=== PATIENT | female | born 1980 | race Caucasian/White ===

== ENCOUNTER 2019-12-12 14:06 | Emergency (ER) | payer OTHER, SELFPAY ==
--- NOTE | ~2019-12-12 | US_ITS ---
EXAMINATION: US pelvic complete w TV DATE: 12/12/2019 16:02 INDICATION: Left pelvic pain Comparison:No prior studies for comparison. TECHNIQUE: Multiple transabdominal and endovaginal sonographic images of the pelvis performed. FINDINGS: The uterus is surgically absent. The right ovary measures 3.3 x 1.6 x 1.3 cm and the left o vary measures 2.5 x 1.5 x 1.6 cm. There are small follicles in each ovary. There is no free fluid in the pelvis. There are no abnormal masses seen on either side. IMPRESSION: 1. Unremarkable pelvic ultrasound post hysterectomy. Reviewed, dictated and finalized at location B.
--- NOTE | ~2019-12-12 | CT_ITS ---
EXAMINATION: CT abdomen pelvis wo con DATE: 12/12/2019 16:36 INDICATION: Left pelvic pain. TECHNIQUE: Computed tomography (CT) of the abdomen and pelvis was performed without intravenous contr ast. Automated exposure control and iterative reconstruction technique were employed. The dose-length product was 622.99 mGy-cm. COMPARISON: CT abdomen and pelvis 12/06/2015 FINDINGS: The visualized portions of the lung bases are clear without pneumonia or pleural effusion. The heart size is normal. No pericardial effusion. There is diffuse hepatic steatosis. There are gall stones in the gallbladder, which is normal in size. The spleen, pancreas, adrenal glands, and right k idney are normal. There is a 1 mm stone in left kidney. There are no dilated loops of bowel. The appe ndix is normal. There are no pathologically enlarged lymph nodes. There is no free intraperitoneal fl uid. The ovaries are normal. There are changes of hysterectomy. There is a supraumbilical ventral her joann containing fat. The bones are unremarkable. There is a 3.2 cm subcutaneous cystic mass in left bu ttock, likely a sebaceous cyst. IMPRESSION: 1. 1 mm nonobstructing left kidney stone. 2. Cholelithiasis. 3. Diffuse hepatic steatosis. 4. Supraumbilical ventral hernia containing fat. Reviewed, dictated and finalized at location A.
[2019-12-12 14:21] VITALS: BP 147/87; PULSE 95; RESP 18; TEMP 36.8; O2SAT 99
--- NOTE | 2019-12-12 15:21 | ED.GENADULT ---
HPI - General Adult General Chief complaint: Abdominal Pain Stated complaint: left ovarian pain Time Seen by Provider: 12/12/19 14:21 Source: patient Mode of arrival: ambulatory Limitations: no limitations History of Present Illness HPI narrative: Patient is a 39-year-old female who presents to emergency department for evaluation of left ovarian pain noting sharp stabbing intermittent pain to the left adnexa region with history of polycystic ovaries and similar occurrence in the past. Patient notes nausea and pain but denies fever chills vomiting vaginal bleeding discharge or urinary symptoms. Patient presents per private vehicle. Patient has follow-up with gynecology tomorrow. Patient does not wish for any IV medications at this time Related Data Home Medications Medication Instructions Recorded Confirmed amoxicillin 500 mg PO DAILY 06/08/19 06/08/19 ergocalciferol (vitamin D2) 1,250 mcg PO DAILY 06/08/19 06/08/19 [Vitamin D2] ertugliflozin [Steglatro] 5 mg PO DAILY 06/08/19 06/08/19 glipizide 2.5 mg PO DAILY 06/08/19 06/08/19 glipizide 5 mg PO DAILY 06/08/19 06/08/19 Allergies Allergy/AdvReac Type Severity Reaction Status Date / Time No Known Allergies Allergy Verified 10/25/18 17:55 Review of Systems Review of Systems: All systems reviewed & are unremarkable except as noted in HPI and below PMFSH Past Medical History Medical History Polycystic ovarian syndrome Surgical History Surgical History H/O: hysterectomy Family History Family History (Updated 12/25/15 @ 23:19 by DOCTOR UNKNOWN) Mother Family history of mental disorder Family history of diabetes mellitus in first degree relative Social History Social History (Updated 12/12/19 @ 15:24 by Russell Gerard PA-C) Smoking status: Current every day smoker Alcohol intake: never Gender identity (if verbalized by the patient): Female Exam Narrative: Exam Narrative: GENERAL: Well-appearing, obese, and in no acute distress. HEAD: Normocephalic, atraumatic. EYES: PERRLA and EOMI. ENT: Nares clear, no rhinorrhea or epistaxis. Mucous membranes moist. Oropharynx without tonsillar hypertrophy exudate or other lesions. NECK: Supple. No adenopathy or masses. CHEST: Clear to auscultation. No respiratory distress. No wheezes rales or rhonchi HEART: Regular rate and rhythm. No murmur heard. Normal peripheral pulses. ABDOMEN: Soft, nontender, nondistended EXTREMITIES: Normal range of motion. No edema. SKIN: Warm, dry, no rash. NEURO: No focal deficits. Alert and oriented x3. PSYCH: Normal mood and affect. Course Course Emergency Course: Patient in the room in no distress aware of case findings treatment plan and diagnosis refused any medications in the emergency department will be reevaluated by her grocery clerk tomorrow and is felt appropriate for outpatient reevaluation Vital Signs Vital signs: Vital Signs Temperature 98.2 F 12/12/19 14:21 Pulse Rate 95 12/12/19 14:21 Respiratory Rate 18 12/12/19 14:21 Blood Pressure 147/87 H 12/12/19 14:21 Pulse Oximetry 99 12/12/19 14:21 Temperature 98.2 F 12/12/19 14:21 Pulse Rate 89 12/12/19 16:19 Respiratory Rate 18 12/12/19 16:19 Blood Pressure 148/98 H 12/12/19 16:19 Pulse Oximetry 100 12/12/19 16:19 Medical Decision Making MDM Narrative Medical decision making narrative: Patient in the room at this time resting comfortably in no distress aware of case findings treatment plan and diagnosis felt appropriate for reevaluation by her grocery clerk tomorrow provided with reasons to return had ultrasound and CAT scan imaging with no high risk changes unsure as to the etiology of her subtle leukocytosis which could be related to her pain patient afebrile nontoxic-appearing no distress and felt appropriate for outpatient reevaluation by gynecology
[2019-12-12 15:39] LABS: Basophils Absolute Auto 0.1 K/mm3 (0.0-0.1); Basophils Percent Auto 0.9 % (0.2-1.2); Eosinophils Absolute Auto 0.3 K/mm3 (0-0.3); Eosinophils Percent Auto 2.2 % (0-4.4); Hematocrit 50.3 % (37.0-47.0); Hemoglobin 16.8 g/dL (12.0-15.0); Immature Granulocyte Absolute 0.05 K/mm3 (0.00-0.031); Immature Granulocyte Percent A 0.4 % (0-0.5); Lymphocytes Absolute Auto 3.77 K/mm3 (0.9-3.2); Lymphocytes Percent Auto 29.7 % (18.3-44.2); Mean Corpuscular HGB Conc 33.4 g/dl (32-36); Mean Corpuscular Hemoglobin 29.5 pg (26-34); Mean Corpuscular Volume 88.4 fl (80-100); Mean Platelet Volume 10.4 fl (7.4-10.4); Monocytes Absolute Auto 0.7 K/mm3 (0.1-0.6); Monocytes Percent Auto 5.3 % (2.6-8.5); Neutrophils Absolute Auto 7.8 K/mm3 (1.3-6.7); Neutrophils Percent Auto 61.5 % (45.5-73.1); Platelet Count Result 301 k/mm3 (150-375); Red Blood Count 5.69 M/mm3 (4.2-5.4); Red Cell Distribution Width 13.7 % (11.5-14.5); White Blood Count 12.7 K/mm3 (4.5-10.0)
[2019-12-12 15:44] LABS: Add Urine Microscopic? YES; Appearance Urine Clear (Clear); Bacteria Urine Trace /hpf; Bilirubin Urine Negative (Negative); Blood Urine Negative (Negative); Color Urine Straw (Yellow); Glucose Urine UA 3+ mg/dL (Negative); Ketones Urine Negative (Negative); Leukocyte Esterase Ur Negative LEU/UL (Negative); Nitrate Urine Negative (Negative); Protein Urine Negative (Negative); RBC Urine 0-2 /hpf (0-2); Specific Grav Ur 1.022 (1.001-1.035); Squamous Epithelial Cell Urine Moderate /hpf (Few); Urobilinogen Urine Negative mg/dL (<2.0); WBC Urine 0-3 /hpf
[2019-12-12 15:51] LABS: Alanine Aminotransferase 19 U/L (4-35); Albumin Level 4.6 g/dL (3.5-5.1); Alkaline Phosphatase 89 U/L (38-126); Aspartate Amino Transferase 19 U/L (14-36); Bilirubin,Total 0.5 mg/dL (0.2-1.3); Blood Urea Nitrogen 14 mg/dL (7-17); Calcium 9.2 mg/dL (8.4-10.2); Carbon Dioxide 24 mmol/L (22-30); Chloride 104 mmol/L (98-107); Estimated CRCL calculation 119 ml/min; Estimated Glomerular Filt Rate > 60; Glucose 206 mg/dL (65-105); Lipase 111 U/L (23-300); Potassium 3.7 mmol/L (3.4-5.0); Sodium 136 mmol/L (137-145)
[2019-12-12 16:19] VITALS: BP 148/98; PULSE 89; RESP 18; O2SAT 100
== END 2019-12-12 17:51 | disposition home or self-care (01) ==
PROVIDERS: Emergency Medicine Emergency Medical Services; Emergency Provider Emergency Medicine; PCP Nurse Practitioner Family
DX: R10.9 Unspecified abdominal pain (principal); E28.2 Polycystic ovarian syndrome; F17.200 Nicotine dependence, unspecified, uncomplicated; N20.0 Calculus of kidney; K80.20 Calculus of gallbladder without cholecystitis without obstruction; K76.0 Fatty (change of) liver, not elsewhere classified; K43.9 Ventral hernia without obstruction or gangrene
CPT/HCPCS: 36415; 74176; 76830; 76856; 80053; 81001; 83690; 85025; 99284

== ENCOUNTER 2021-11-26 11:50 | Emergency (ER) | payer OTHER, SELFPAY ==
[2021-11-26 11:56] VITALS: BP 133/81; PULSE 81; RESP 20; TEMP 36.6; O2SAT 99
--- NOTE | 2021-11-26 11:58 | ED.NAVMDI ---
HPI - Nausea/Vomiting/Diarrhea General Stated complaint: Abdo pain diarrhea Time Seen by Provider: 11/26/21 11:59 Source: patient and RN notes reviewed History of Present Illness HPI Narrative: Patient is a 41-year-old female presents the urgent care with complaints of loose stools and abdominal pain. Patient states she is having a lot of abdominal cramping and feels that her body needs to expel something . Patient states that last she cooked a meal and there was raw chicken juice on her food . Patient states she proceeded to eat the mashed potatoes that were covered in the raw chicken juice and has been ill ever since then. Patient states she spoke to her doctor on Monday in which they told her not to stop the diarrhea and call if symptoms are still present on Monday. Patient states she called today and they wanted to do outpatient blood work in which the patient did not feel like that was enough . Patient states that she has not had any vomiting but reports consistent nausea. States that her last treatment for her symptoms was Monday in which she took 1 dose of Imodium. Patient denies any fevers. No other acute complaints. No acute distress noted. Patient aware of the plan of care. Some parts of this dictation were generated by voice recognition software and may contain typographical and/or grammatical inaccuracies. Related Data Home Medications Medication Instructions Recorded Confirmed ergocalciferol (vitamin D2) 1,250 1,250 mcg PO DAILY 06/08/19 04/05/21 mcg (50,000 unit) capsule (Vitamin D2) ertugliflozin 5 mg tablet 5 mg PO DAILY 06/08/19 04/05/21 (Steglatro) glipizide 2.5 mg tablet, extended 2.5 mg PO DAILY 06/08/19 04/05/21 release 24 hr glipizide 5 mg tablet 5 mg PO DAILY 06/08/19 04/05/21 Allergies Allergy/AdvReac Type Severity Reaction Status Date / Time No Known Allergies Allergy Verified 11/26/21 12:11 Review of Systems Review of Systems: CONSTITUTIONAL: Denies fever, chills, or sweats. Reports of fatigue EYES: Denies visual changes, redness, or discharge. ENT: Denies rhinorrhea, congestion, sore throat, or otalgia. CARDIOVASCULAR: Denies chest pain, palpitations, or edema. RESPIRATORY: Denies cough or dyspnea. GASTROINTESTINAL: Reports of nausea and diarrhea without vomiting. Reports of intermittent abdominal cramping GENITOURINARY: Denies dysuria or hematuria. SKIN: Denies rash or itching. MUSCULOSKELETAL: Denies back pain, joint pain, or myalgia. NEUROLOGIC: Denies headache, numbness, or weakness. All other systems reviewed are negative, except as documented in HPI. [facility] Past Medical History Medical History Diabetes Kidney stones Polycystic ovarian syndrome Surgical History Surgical History H/O: hysterectomy History of placement of ear tubes History of tubal ligation Family History Family History Mother Family history of mental disorder Family history of diabetes mellitus in first degree relative Heart disease Grandparent Cerebrovascular accident Diabetes mellitus Heart disease Social History Social History Years smoked: 25 Smoking status: Current every day smoker Alcohol intake: never Additional occupation/education comments: [employer] Gender identity (if verbalized by the patient): Female Comments At the time of my signature, I reviewed and agree with the nursing past medical, surgical, social, and family history. There is no relevant family history pertinent to the patient complaint. Exam Narrative: GENERAL: This is a well-nourished, well-developed patient. Appears anxious HEAD: normocephalic, atraumatic. EYES: PERRL. Sclera clear/white. Vision is grossly intact. EARS: External ears normal NOSE: External
== END 2021-11-26 12:20 | disposition short-term general hospital (02) ==
PROVIDERS: Emergency Provider Nurse Practitioner Family; PCP Nurse Practitioner Family
DX: R10.12 Left upper quadrant pain (principal); R19.7 Diarrhea, unspecified; F17.200 Nicotine dependence, unspecified, uncomplicated; E11.9 Type 2 diabetes mellitus without complications; E28.2 Polycystic ovarian syndrome
CPT/HCPCS: 99212; G0463

== ENCOUNTER 2021-11-26 12:52 | Emergency (ER) | payer OTHER, SELFPAY ==
[2021-11-26 12:57] VITALS: BP 128/98; PULSE 85; RESP 18; TEMP 36.1; O2SAT 99
--- NOTE | 2021-11-26 14:27 | ED.ABDPAIN ---
HPI - Abdominal Pain General Chief Complaint: Abdominal Pain Stated Complaint: abdominal pain Time Seen by Provider: 11/26/21 14:27 Source: patient Mode of arrival: ambulatory Limitations: no limitations History of Present Illness HPI narrative: Patient presents with intermittent feeling blah, shaky, sweating, and diarrheafor the last 3 days history of IBS, a lot of stress lately, patient reports coming in contact with chicken juice 3 days ago which probably have Salmonella. Patient denies any fever, chills, abdominal pain, or bloody diarrhea Related Data Home Medications Medication Instructions Recorded Confirmed ergocalciferol (vitamin D2) 1,250 1,250 mcg PO DAILY 06/08/19 04/05/21 mcg (50,000 unit) capsule (Vitamin D2) ertugliflozin 5 mg tablet 5 mg PO DAILY 06/08/19 04/05/21 (Steglatro) glipizide 2.5 mg tablet, extended 2.5 mg PO DAILY 06/08/19 04/05/21 release 24 hr glipizide 5 mg tablet 5 mg PO DAILY 06/08/19 04/05/21 Allergies Allergy/AdvReac Type Severity Reaction Status Date / Time No Known Allergies Allergy Verified 11/26/21 12:11 Review of Systems Review of Systems: All systems reviewed & are unremarkable except as noted in HPI and below PMFSH Past Medical History Medical History Diabetes Kidney stones Polycystic ovarian syndrome Surgical History Surgical History H/O: hysterectomy History of placement of ear tubes History of tubal ligation Family History Family History Mother Family history of mental disorder Family history of diabetes mellitus in first degree relative Heart disease Grandparent Cerebrovascular accident Diabetes mellitus Heart disease Social History Social History Years smoked: 25 Smoking status: Current every day smoker Alcohol intake: never 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 Musculoskeletal: Normal range of motion, nontender back Neurologic: Alert and oriented ?3, [employer] is normal as tested, no gross motor deficit Course Course Emergency Course: Patient presents with not feeling well with diarrhea, possible chicken juice exposure,/Salmonella infection, no family member have similar symptoms, history of IBS, a lot of stress lately, work-up today showed hypokalemia, could be secondary to the diarrhea. My concern is IBS flare, viral diarrhea, less likely Salmonella infection. Even if the patient have Salmonella infection, supportive measures is recommended, there is no evidence of benefit from antibiotic in diarrhea in otherwise healthy people.. Patient denies any fever, chills, abdominal pain, nausea or vomiting. Vital Signs Vital signs: Vital Signs Temperature 36.1 C L 11/26/21 12:57 Pulse Rate 85 11/26/21 12:57 Respiratory Rate 18 11/26/21 12:57 Blood Pressure 128/98 H 11/26/21 12:57 Pulse Oximetry 99 11/26/21 12:57 Oxygen Delivery Room Air 11/26/21 12:57 Temperature 36.1 C L 11/26/21 12
[2021-11-26 14:57] LABS: Basophils Percent Auto 0.5 % (0.2-1.2); Eosinophils Absolute Auto 0.2 K/mm3 (0-0.3); Eosinophils Percent Auto 1.9 % (0-4.4); Hematocrit 50.5 % (37.0-47.0); Hemoglobin 16.7 g/dL (12.0-15.0); Immature Granulocyte Absolute 0.03 K/mm3 (0.00-0.031); Immature Granulocyte Percent A 0.4 % (0-0.5); Lymphocytes Absolute Auto 3.77 K/mm3 (0.9-3.2); Lymphocytes Percent Auto 45.3 % (18.3-44.2); Mean Corpuscular HGB Conc 33.1 g/dl (32-36); Mean Corpuscular Hemoglobin 29.5 pg (26-34); Mean Corpuscular Volume 89.2 fl (80-100); Mean Platelet Volume 10.8 fl (7.4-10.4); Monocytes Absolute Auto 0.4 K/mm3 (0.1-0.6); Monocytes Percent Auto 5.2 % (2.6-8.5); Neutrophils Absolute Auto 3.9 K/mm3 (1.3-6.7); Neutrophils Percent Auto 46.7 % (45.5-73.1); Platelet Count Result 166 k/mm3 (150-375); Red Blood Count 5.66 M/mm3 (4.2-5.4); Red Cell Distribution Width 13.4 % (11.5-14.5); White Blood Count 8.3 K/mm3 (4.5-10.0)
[2021-11-26] MEDS: SODIUM CHLORIDE 0.9% IV 2,000 ML 999 ML IV CONT (14:59)
[2021-11-26 15:41] LABS: Alanine Aminotransferase 34 U/L (6-35); Albumin Level 3.7 g/dL (3.5-5.1); Alkaline Phosphatase 63 U/L (38-126); Anion Gap 5 mmol/L (8-16); Aspartate Amino Transferase 25 U/L (14-36); Bilirubin,Total 0.4 mg/dL (0.2-1.3); Blood Urea Nitrogen 9 mg/dL (7-17); Calcium 7.5 mg/dL (8.4-10.2); Carbon Dioxide 23 mmol/L (22-30); Chloride 112 mmol/L (98-107); Estimated CRCL calculation 130 ml/min; Estimated Glomerular Filt Rate > 60; Glucose 153 mg/dL (65-110); Lipase 38 U/L (23-300); Potassium 3.3 mmol/L (3.4-5.0); Sodium 140 mmol/L (137-145)
[2021-11-26] MEDS: METOCLOPRAMIDE HCL INJ 10 MG/2 ML VIAL IV PUSH (15:47)
[2021-11-26] MEDS: diphenhydrAMINE HCl INJ 50 MG/ML VIAL 25 MG IV PUSH (15:48)
[2021-11-26 16:53] LABS: Appearance Urine Clear (Clear); Bilirubin Urine Negative (Negative); Blood Urine Negative (Negative); Color Urine Yellow (Yellow); Glucose Urine UA 3+ mg/dL (Negative); Ketones Urine 1+ mg/dL (Negative); Leukocyte Esterase Ur Negative LEU/UL (Negative); Nitrate Urine Negative (Negative); Protein Urine Negative (Negative); Specific Grav Ur 1.015 (1.001-1.035); Urobilinogen Urine 0.2 mg/dL (<2.0)
[2021-11-26 17:05] LABS: Bacteria Urine Trace /hpf; Mucus Urine Rare /lpf; Squamous Epithelial Cell Urine Rare /hpf (Few)
[2021-11-26 17:13] VITALS: BP 107/87; PULSE 68; RESP 18; O2SAT 97
[2021-11-26 17:15] LABS: Add Urine Microscopic? YES
[2021-11-26] MEDS: POTASSIUM CHLORIDE 20 MEQ TABLET 40 MEQ PO (17:19)
[2021-11-26 17:24] VITALS: BP 115/67; PULSE 78; RESP 14; O2SAT 98
== END 2021-11-26 17:26 | disposition home or self-care (01) ==
PROVIDERS: Emergency Provider Emergency Medicine; PCP Nurse Practitioner Family
DX: R19.7 Diarrhea, unspecified (principal); E11.9 Type 2 diabetes mellitus without complications; F17.210 Nicotine dependence, cigarettes, uncomplicated
CPT/HCPCS: 36415; 80053; 81001; 83690; 85025; 96361; 96374; 96375; 99284; A9270; J1200; J2765; J7030

== ENCOUNTER 2022-08-01 13:25 | Outpatient (CLI) | payer OTHER, SELFPAY ==
[2022-08-01 14:59] LABS: Anion Gap 7 mmol/L (8-16); Blood Urea Nitrogen 18 mg/dL (7-17); Calcium 8.7 mg/dL (8.4-10.2); Carbon Dioxide 25 mmol/L (22-30); Chloride 106 mmol/L (98-107); Estimated Glomerular Filt Rate > 60; Glucose 106 mg/dL (65-110); Potassium 4.1 mmol/L (3.4-5.0); Sodium 138 mmol/L (137-145)
== END 2022-08-01 13:26 | disposition home or self-care (01) ==
LOC: ANHSURGERY 13:37
PROVIDERS: Anesthesiology; PCP Nurse Practitioner Family; Visit Provider Surgery
DX: E11.9 Type 2 diabetes mellitus without complications (principal); Z01.818 Encounter for other preprocedural examination
CPT/HCPCS: 36415; 80048

== ENCOUNTER 2022-08-09 01:41 | Day surgery (SDC) | payer OTHER, SELFPAY ==
--- NOTE | 2022-07-29 09:17 | PC.NURSE ---
Report to the Outpatient Waiting Room, entrance under the green pavilion located off [facility], at time 1030 on date 08/09/22. Planned Procedure Time: 1230 . Time changes happen often and if your time is changed the preop area will call you the afternoon before. - You and your visitor will be asked to self-screen and do not enter if you have any COVID symptoms. - Only one visitor is requested with a max of two and NO children visitors are allowed at this time. - The patient visitor may be requested to leave or wait in car when not with patient due to distancing restrictions. - A mask is optional within the hospital at this time. Patients may have clear liquids (water, carbonated beverages, clear teas, apple juice) until 3 hours prior to surgery with a maximum of 20 ounces. - No food from midnight until time of surgery - Infants may have breast milk until 4 hours before surgery, infant formula 6 hours prior to surgery. - Children will be allowed to drink immediately following surgery. If applicable, please bring a bottle or sippy cup to assist with drinking. Juice, water, soda, and popsicles are readily available. For infants on formula, please bring formula the day of surgery. Pacifiers are allowed. Take the following medications with a SIP of water the morning of surgery: ____NONE DO NOT STOP ANY OF YOUR OTHER PRESCRIPTION MEDICATIONS PRIOR TO SURGERY ?EXCEPT THE FOLLOWING Medications to discontinue per physician VITAMIN D Date to take last dose 3 DAYS PRIOR__ Please no make-up, nail frisian, hairspray, perfume, deodorant, or body powder the day of surgery. No jewelry (including any body piercings) or valuables the day of surgery, leave them at home. Please take a shower or bath the night before, or the morning of, surgery with an antibacterial soap. Wear comfortable, loose fitting clothing. Children are encouraged to wear pajamas. - Jewelry must be removed prior to entering the operating room. Rings and piercings that are not removed may be cut off. - The hospital will not accept responsibility for valuables. - Please leave all valuables, including medications, at home the day of surgery. If you are going home after surgery, a licensed chair car driver must drive you home. - NO public transportation without another adult if you receive anesthesia. - We recommend that an adult stay with you for 24 hours following discharge. - We also recommend that you do not drive, make important decision, drink alcoholic beverages, or take any drugs that were not prescribed by your health care provider for at least 24 hours after your discharge time. For Pediatric surgeries, we recommend two adults accompany the child home. Follow any additional instructions given to you from your surgeon. If you or anyone in your household have experienced Covid symptoms in the past week, please notify your surgeon or the nurse liaison at the phone number below for possible testing. Telephone instructions given to _PATIENT and asked if any additional questions and then verbalized understanding. Patient advised to call surgeon office or pre surgery nurse liaison [phone] if any additional questions.
[2022-08-09 12:45] VITALS: BP 120/79; PULSE 100; RESP 16; TEMP 36.4; O2SAT 97
[2022-08-09] MEDS: LACTATED RINGERS 1,000 ML 30 ML IV CONT (12:45)
[2022-08-09 12:57] LABS: Glucose Point of Care 172 mg/dl (65-105)
--- NOTE | 2022-08-09 13:27 | WPDHPUPDATE1 ---
History and Physical Update Update Date/Time: 08/09/22 13:27 History and Physical has been reviewed, including an updated exam of the patient. There are NO changes in the patient's condition. Risks, benefits, and alternatives have been discussed and questions answered. Patient agrees to proceed with procedure.
--- NOTE | 2022-08-09 13:34 | WPDANESEPPF ---
Anes - Initial Pre Proc Eval Procedure: Operation Date: 08/09/22 15:00 Proposed Procedures p Excision of Left Buttock Mass - Derrick Julio DO Date/Time: 08/09/22 13:34 Surgeon: Derrick Julio DO Pre Op Diagnosis: left buttock nodule(4.5cm) Patient Data Age: 41 Gender: F Height: 1.65 m Weight: 82.5 kg Last Vital Signs Temp 36.4 C 08/09/22 12:45 Pulse 100 08/09/22 12:45 Resp 16 08/09/22 12:45 BP 120/79 08/09/22 12:45 Pulse Ox 97 08/09/22 12:45 O2 Del Method Room Air 08/09/22 12:45 Allergies Allergy/AdvReac Type Severity Reaction Status Date / Time No Known Allergies Allergy Verified 08/09/22 12:58 Home Medications Medication Instructions Recorded Confirmed Type ergocalciferol (vitamin D2) 1,250 1,250 mcg PO WEEKLY 06/08/19 07/29/22 History mcg (50,000 unit) capsule (Vitamin D2) ertugliflozin 5 mg tablet 5 mg PO DAILY 06/08/19 07/29/22 History (Steglatro) glipizide 2.5 mg tablet, extended 2.5 mg PO DAILY 06/08/19 07/29/22 History release 24 hr glipizide 5 mg tablet 5 mg PO DAILY 06/08/19 07/29/22 History loperamide 2 mg capsule 2 mg PO PRN PRN Constipation 07/29/22 07/29/22 History Laboratory Tests 08/09/22 12:51 POC Capillary Glucose 172 mg/dl H mg/dl (65-105) Patient hx anesthesia problems: none Family hx anesthesia problems: none Results Review: All pre-operative results and documents have been reviewed as part of the pre-operative evaluation. [facility] Past Medical History Medical History Diabetes Kidney stones Polycystic ovarian syndrome Surgical History Surgical History H/O: hysterectomy History of placement of ear tubes History of tubal ligation Family History Family History Mother Family history of mental disorder Family history of diabetes mellitus in first degree relative Heart disease Grandparent Cerebrovascular accident Diabetes mellitus Heart disease Social History Social History Smoking packs per day: 1 Smoking cigarettes per day: 20.0 Years smoked: 27 Smoking pack-years: 27.00 Smoking status: Current every day smoker Alcohol intake: never Substance use type: marijuana Other substance usage details: HOURLY Living arrangements: with family Occupation/Education: occupation Gender identity (if verbalized by the patient): Female Anes - Eval Final PreProcedure Day of Procedure 08/09/22 13:34 Patient weight: overweight Heart: regular rate and rhythm Lungs: decreased breath sounds Airway: Mallampati scale class II Neurological: alert and oriented Last oral intake: >/= 8 hours ASA classification: III Emergent: no Anesthetic plan: proceed Anesthesia type and monitoring: general GIVS and standard monitoring Results Review: All pre-operative results and documents have been reviewed as part of the pre-operative evaluation. Informed Consent: The patient's anesthetic plan and its attendant risks and benefits were discussed with the patient/family/POA. Questions were solicited and answers provided to the satisfaction of the patient/family/POA.
[2022-08-09] MEDS: ceFAZolin 2 GM/D5W 50 ML 2 GM/50 ML BAG IVPB (13:50)
[2022-08-09] MEDS: LIDO 1%/EPINEPHRINE 1:100,000 50 ML VIAL 20 ML INFILTRATE (14:15)
[2022-08-09 14:50] VITALS: BP 96/63; PULSE 87; RESP 22; TEMP 36.2; O2SAT 100
--- NOTE | 2022-08-09 15:00 | W.PM.PROC2 ---
Procedure Note - Detailed Date of Procedure 08/09/22 Pre-op Diagnosis left buttock nodule Post-op Diagnosis Same Procedure Performed Excision of 6 cm left buttock mass Surgeon Derrick Julio, DO Anesthesia General and Local (1% lidocaine and epinephrine) Indications This is a 41-year-old woman who presented with a mass on her left buttock region that had been present for several years. This has gradually enlarged over the years and is causing some pain and discomfort. She denies any drainage from the area. She previously had imaging which showed evidence of a cystic mass in the left buttock region. Discussions were made with the patient about treatment options and decision was made to proceed with excision the left buttock mass. Findings Left buttock mass was excised completely. Mass measured about 6 cm in diameter. This appeared to be a cyst. No other significant abnormalities were noted. The specimen was completely removed and sent to the lab for pathology. Description of Procedure Procedure as well as risks, benefits, and alternatives were discussed with the patient. Written consent was obtained and placed in chart prior to procedure. Patient was brought back to surgical suite. She was placed supine on her hospital stretcher. Time-out was done to confirm patient and procedure. She was then intubated by the anesthesia department. She was then repositioned into prone position on the operating table. Her left buttock area was prepped and draped in sterile fashion using chlorhexidine prep. 1% lidocaine with epinephrine was infiltrated locally around the mass. A 6 cm elliptical incision was made mass using a 15 blade scalpel. Electrocautery was used for hemostasis. Mass was sharply excised using 15 blade scalpel. The mass was completely excised intact and was sent to the lab for pathology. The wound bed was then inspected hemostasis appeared adequate. No other abnormalities were noted. The skin edges were then reapproximated using 4-0 nylon vertical mattress interrupted sutures. Bacitracin ointment was then applied followed by 4 x 4 gauze and tape. The patient was then awakened from anesthesia, extubated, and transferred to recovery. Estimated Blood Loss 5 Pathology Yes (6 cm left buttock mass) Complications No immediate complications Condition Stable Disposition Same day [facility] Billing Surgery - Charge Forward: Surgery Billing
[2022-08-09 15:05] VITALS: BP 104/77; PULSE 89; RESP 16; O2SAT 99
[2022-08-09 15:25] LABS: Glucose Point of Care 137 mg/dl (65-105)
[2022-08-09 15:30] VITALS: BP 110/76; PULSE 90; RESP 18
[2022-08-09 15:50] VITALS: BP 110/73; PULSE 89; RESP 18
== END 2022-08-09 16:03 | disposition home or self-care (01) ==
PROVIDERS: PCP Nurse Practitioner Family; Visit Provider Surgery
PROC: (CPT 11406; principal; 2022-08-09 15:00)
DX: L72.0 Epidermal cyst (principal); E11.9 Type 2 diabetes mellitus without complications
CPT/HCPCS: 11406; 82948; 88304; A9270; J0330; J0690; J1100; J2250; J2405; J2704; J7120

== ENCOUNTER 2024-07-29 09:42 | Emergency (ER) | payer OTHER, SELFPAY ==
[2024-07-29 09:52] VITALS: BP 147/95; PULSE 87; RESP 20; TEMP 36.9; O2SAT 98
--- NOTE | 2024-07-29 10:03 | ED.WOUNDLAC ---
HPI - Wound/Laceration General Chief Complaint: Skin/Abscess/Foreign Body Stated Complaint: Left hand swollen finger Time Seen by Provider: 07/29/24 10:05 Source: patient Mode of arrival: ambulatory Limitations: no limitations History of Present Illness HPI narrative: 43-year-old female with DM presented for complaint of swelling and redness to the left middle finger following a squirrel bite 2 days ago. Endorses decreased range of motion of the finger due to swelling. She cleaned the site with soap and water at the time of the injury. Patient marked the redness with pen. Took 3 tablets of amoxicillin 500mg yesterday. Denies numbness, tingling, n/v/d/f/c. Tetanus about 5 years per pt. Related Data Home Medications ?Medication ?Instructions ?Recorded ?Confirmed ?Last Taken ?Type ergocalciferol (vitamin D2) 1,250 1,250 mcg PO WEEKLY 06/08/19 08/22/22 Unknown History mcg (50,000 unit) capsule (Vitamin D2) glimepiride 2 mg tablet mg 07/29/24 Unknown History Allergies Allergy/AdvReac Type Severity Reaction Status Date / Time No Known Allergies Allergy Verified 08/22/22 09:02 Review of Systems Review of Systems: CONSTITUTIONAL: Denies body aches, fever, chills, or sweats. EYES: Denies visual changes, redness, or discharge. ENT: Denies rhinorrhea, congestion CARDIOVASCULAR: Denies chest pain, palpitations, or edema. RESPIRATORY: Denies cough or dyspnea. GASTROINTESTINAL: Denies abdominal pain, nausea, vomiting, or diarrhea. SKIN: per HPI MUSCULOSKELETAL: Denies back pain, joint pain, or myalgia. NEUROLOGIC: Denies headache, numbness, tingling, or weakness. [facility] Past Medical History Medical History Diabetes Kidney stones Polycystic ovarian syndrome Surgical History Surgical History History of excision of mass excision of 6 cm L buttock mass on 08/09/22 pathology showed benign epidermal inclusion cyst History of placement of ear tubes History of tubal ligation H/O: hysterectomy Family History Family History Mother Family history of mental disorder Family history of diabetes mellitus in first degree relative Heart disease Grandparent Cerebrovascular accident Diabetes mellitus Heart disease Social History Social History Smoking packs per day: 1 Smoking cigarettes per day: 20.0 Years smoked: 27 Smoking pack-years: 27.00 Smoking status: Current every day smoker Alcohol intake: never Substance use type: marijuana Other substance usage details: HOURLY Living arrangements: with family Occupation/Education: occupation Gender identity (if verbalized by the patient): Female Comments At time of signature, I have reviewed and agree with nursing past medical, surgical, social and family history unless otherwise noted. Please see nursing chart for further information. There is no relevant family history pertinent to the presenting complaint Exam Narrative: GENERAL: Well-appearing HEAD: Normocephalic, atraumatic. EYES: conjunctivae clear, and EOMI. ENT: Mucous membranes moist. Oropharynx without edema, erythema or lesions. NECK: Supple. No lymphadenopathy CHEST: Clear to auscultation. HEART: Regular rate and rhythm. SKIN: Warm, dry. Left 3rd digit puncture site to the PIP, with swelling and erythema surrounding the site extending dorsal surface of MCP. no fluctuance or active drainage; no streaking. Digit is tender with palpation. decreased ROM to the PIP due to swelling. sensation intact, cap refill <3 seconds. NEURO: Alert and oriented x3. Extrem: Hand/finger images:  1. area of puncture site 2. area of swelling and erythema Course Course Emergency Course: Patient is aware of diagnosis, understands and agrees to treatment plan. Anticipatory guidance given. Patient agrees to follow-up as directed and is aware of reasons to seek care at the emergency department. Portions of this record may have been created with voice recognition software Level of Care: Express Care Visit Vital Signs Vital signs: Vital Signs Temperature 98.5 F 07/29/24 09:52 Pulse Rate 87 07/29/24 09:52 Respiratory Rate 20 07/29/24 09:52 Blood Pressure 147/95 H 07/29/24 09:52 Pulse Oximetry 98 07/29/24 09:52 Oxygen Delivery Room Air 07/29/24 09:52 Temperature 98.5 F 07/29/24 09:52 Pulse Rate 87 07/29/24 09:52 Respiratory Rate 20 07/29/24 09:52 Blood Pressure 147/95 H 07/29/24 09:52 Pulse Oximetry 98 07/29/24 09:52 Oxygen Delivery Room Air 07/29/24 09:52 Reviewed MDM - Wound/Laceration MDM Narrative Medical decision making narrative: Discussed physical exam findings. Advised supportive measures and signs/symptoms to go to the ER at length Pt will monitor closely, aware of the risk of hand infection. Offered ER at this time but pt says she cannot afford it, will try the antibiotic and if no improvement she will go to the ER immediately. Pt is appropriate for outpt treatment and f/u. Squirrels carry low risk of rabies. Differential Diagnosis Differential diagnosis: Likely abscess, abrasion, avulsion of skin and other Discharge Plan Discharge Clinical Impression: Cellulitis of finger of left hand, Animal bite Patient Disposition: Home, Self-Care Condition: Stable Instructions: Antibiotic Form, Cellulitis (ED) Additional Instructions: Keep the area clean and dry - cleanse with warm water and mild soap and allow to fully dry. Ok to apply neosporin to the site Keep it open to air (no bandages unless draining) Tylenol as needed for pain Take antibiotic as directed Watch for worsening symptoms including pain, redness, swelling, streaking, pus/drainage, fever. Go to the ER with any of these symptoms or concerns. Follow up with primary care provider in 3 days Patient Language: Omani Prescriptions: New amoxicillin-pot clavulanate 875-125 mg tablet 1 tablet PO Q12H 7 Days Qty: 14 0RF No Action ergocalciferol (vitamin D2) [Vitamin D2] 1,250 mcg (50,000 unit) capsule 1,250 mcg PO WEEKLY glimepiride 2 mg tablet Follow-up/Referrals: Marty Banuelos MD [Primary Care Provider] - Stand Alone Forms: Work/School Release IP Time of Disposition: 10:16
== END 2024-07-29 10:25 | disposition home or self-care (01) ==
PROVIDERS: Emergency Provider Nurse Practitioner Family; PCP Emergency Medicine
DX: S61.233A Puncture wound without foreign body of left middle finger without damage to nail, initial encounter (principal); L03.012 Cellulitis of left finger; L03.114 Cellulitis of left upper limb; W53.21XA Bitten by squirrel, initial encounter; E11.9 Type 2 diabetes mellitus without complications; E28.2 Polycystic ovarian syndrome
CPT/HCPCS: 99213; G0463

== ENCOUNTER 2024-07-29 12:15 | Emergency (ER) | payer OTHER, SELFPAY ==
[2024-07-29 12:23] VITALS: BP 144/88; PULSE 113; RESP 20; TEMP 36.6; O2SAT 97
[2024-07-29 14:40] VITALS: BP 143/83; PULSE 89; RESP 14; TEMP 36.8; O2SAT 96
--- NOTE | 2024-07-29 16:35 | ED.ANIMALBIT ---
HPI - Animal Bite General Chief Complaint: Animal Bite Stated Complaint: animal bite Time Seen by Provider: 07/29/24 16:23 Source: patient Mode of arrival: ambulatory Limitations: no limitations History of Present Illness HPI narrative: PATIENT WAS TRYING TO GET CLOSER TO A SQUIRREL TO PLAY WITH IT, GOT A BITE TO THE LEFT HAND 3 DAYS AGO. WAS SEEN AT URGENT CARE TODAY AND RECEIVED 1ST DOSE OF AUGMENTIN. PATIENT DID NOT TAKE HER DIABETES MEDICINE TODAY. PATIENT COMPLAINING OF PAIN AT THE LEFT HAND MAINLY MIDDLE FINGER. SHE DENIES ANY FEVER OR CHILLS OR NAUSEA OR VOMITING. Related Data Home Medications ?Medication ?Instructions ?Recorded ?Confirmed ?Last Taken ?Type ergocalciferol (vitamin D2) 1,250 1,250 mcg PO WEEKLY 06/08/19 08/22/22 Unknown History mcg (50,000 unit) capsule (Vitamin D2) glimepiride 2 mg tablet mg 07/29/24 Unknown History Allergies Allergy/AdvReac Type Severity Reaction Status Date / Time No Known Allergies Allergy Verified 08/22/22 09:02 Review of Systems Review of Systems: All systems reviewed & are unremarkable except as noted in HPI and below PMFSH Past Medical History Medical History Diabetes Kidney stones Polycystic ovarian syndrome Surgical History Surgical History History of excision of mass excision of 6 cm L buttock mass on 08/09/22 pathology showed benign epidermal inclusion cyst History of placement of ear tubes History of tubal ligation H/O: hysterectomy Family History Family History Mother Family history of mental disorder Family history of diabetes mellitus in first degree relative Heart disease Grandparent Cerebrovascular accident Diabetes mellitus Heart disease Social History Social History Smoking packs per day: 1 Smoking cigarettes per day: 20.0 Years smoked: 27 Smoking pack-years: 27.00 Smoking status: Current every day smoker Alcohol intake: never Substance use type: marijuana Other substance usage details: HOURLY Living arrangements: with family Occupation/Education: occupation Gender identity (if verbalized by the patient): Female Exam Narrative: GENERAL APPEARANCE: WELL-DEVELOPED, WELL-NOURISHED SKIN: NORMAL COLOR VASCULAR: NORMAL PERIPHERAL PULSES, NORMAL CAPILLARY REFILL. MUSCULOSKELETAL: LEFT HAND SHOWED ERYTHEMATOUS CHANGES AROUND A BITE AT THE DORSAL SIDE OF THE MIDDLE FINGER, ERYTHEMATOUS CHANGES 5 X 4 CM AT THE DORSAL SIDE OF THE HAND. NOTHING ON THE PALMAR SIDE. TENDER TO TOUCH, SLIGHTLY WARM, NO DISCHARGE NEUROLOGIC: ALERT AND ORIENTED ?3, POLICE CLERK IS NORMAL TESTED, NO GROSS MOTOR DEFICIT Course Vital Signs Vital signs: Vital Signs Temperature 36.6 C 07/29/24 12:23 Pulse Rate 113 H 07/29/24 12:23 Respiratory Rate 20 07/29/24 12:23 Blood Pressure 144/88 H 07/29/24 12:23 Pulse Oximetry 97 07/29/24 12:23 Oxygen Delivery Room Air 07/29/24 12:23 Temperature 36.8 C 07/29/24 14:40 Pulse Rate 89 07/29/24 14:40 Respiratory Rate 14 07/29/24 14:40 Blood Pressure 143/83 H 07/29/24 14:40 Pulse Oximetry 96 07/29/24 14:40 Oxygen Delivery Room Air 07/29/24 12:23 MDM - Animal Bite MDM Narrative Medical decision making narrative: PATIENT WAS TRYING TO GET CLOSER TO A NORMAL LOOKING SQUIRREL, LEFT HAND BITE 3 DAYS AGO VITAL SIGNS ARE SHOWING HEART RATE OF 113 PHYSICAL EXAMINATION CONSISTENT WITH CELLULITIS SECONDARY TO LEFT HAND BITE DIFFERENTIAL DIAGNOSIS LEFT HAND BONE FRACTURE, FOREIGN BODY, INFECTION X-RAY OF LEFT HAND SHOWED NO ACUTE OSSEOUS ABNORMALITY BLOOD WORKUP TODAY INCLUDES CBC, CMP SHOWED WBC OF 13.5, BLOOD GLUCOSE OF 319, PATIENT DID NOT TAKE HER BLOOD GLUCOSE MEDICINE TODAY. PATIENT WAS ADVISED TO CONTINUE AUGMENTIN, KEEP HAND ELEVATED AND FOLLOW-UP WITH DR. SANTANA IF THERE IS NO IMPROVEMENT IN 3-5 DAYS Differential Diagnosis Differential diagnosis: Likely other ( ABOVE) Medical Records Attestation: I reviewed the patient's medical records. Lab Data Attestation: I reviewed the patient's lab results. 07/29/24 16:55 07/29/24 16:55 Labs: Lab Results 07/29/24 Range/Units 16:55 WBC 13.5 H (4.5-10.0) K/mm3 RBC 5.21 (4.2-5.4) M/mm3 Hgb 15.6 H (12.0-15.0) g/dL Hct 46.1 (37.0-47.0) % MCV 88.5 (80-100) fl MCH 29.9 (26-34) pg MCHC 33.8 (32-36) g/dl RDW 13.5 (11.5-14.5) % Plt Count 243 (150-375) k/mm3 MPV 10.2 (7.4-10.4) fl Immature Gran % (Auto) 0.4 (0-0.5) % Neut % (Auto) 64.8 (45.5-73.1) % Lymph % (Auto) 26.7 (18.3-44.2) % Becker % (Auto) 5.8 (2.6-8.5) % Eos % (Auto) 1.8 (0-4.4) % Baso % (Auto) 0.5 (0.2-1.2) % Lymph # (Auto) 3.61 H (0.9-3.2) K/mm3 Becker # (Auto) 0.8 H (0.1-0.6) K/mm3 Eos # (Auto) 0.3 (0-0.3) K/mm3 Baso # (Auto) 0.1 (0.0-0.1) K/mm3 Abs Immat Gran (auto) 0.05 H (0.00-0.031) K/mm3 Absolute Neuts (auto) 8.8 H (1.3-6.7) K/mm3 Absolute Nucleated RBC 0.000 (0.0-0.012) K/mm3 Nucleated RBC % 0.0 (0.0-0.2) % Sodium 135 L (137-145) mmol/L Potassium 4.3 (3.4-5.0) mmol/L Chloride 102 (98-107) mmol/L Carbon Dioxide 21 L (22-30) mmol/L Anion Gap 12 (4-12) mmol/L BUN 16 (7-17) mg/dL Creatinine 0.41 L (0.7-1.0) mg/dL Estim Creat Clear Calc 152 ml/min Estimated GFR > 60 (59 - ) Glucose 319 H (65-110) mg/dL Calcium 9.1 (8.4-10.2) mg/dL Total Bilirubin 0.6 (0.2-1.3) mg/dL AST 21 (14-36) U/L ALT 27 (6-35) U/L Alkaline Phosphatase 102 (38-126) U/L Total Protein 7.0 (6.3-8.2) g/dL Albumin 4.1 (3.5-5.1) g/dL Imaging Data Radiologist's impression: Impressions Hand X-Ray 07/29/24 16:59 IMPRESSION: 1. 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 No acute osseous abnormality, soft tissue gas or radiopaque foreign bodies. Critical Care Time Critical Care Time Critical Care Time: No Discharge Plan Discharge Clinical Impression: Bitten by [email or web address] Patient Disposition: Home, Self-Care Condition: Stable Instructions: Antibiotic Form, Animal Bite (ED) Additional Instructions: RETURN IF SYMPTOMS ARE WORSENING , CALL YOUR FAMILY PHYSICIAN FOR APPOINTMENT, TAKE TYLENOL NEEDED FOR ACHES AND PAIN, CONTINUE HOME MEDICATIONS., KEEP HAND ELEVATED Patient Language: Lao Prescriptions: No Action ergocalciferol (vitamin D2) [Vitamin D2] 1,250 mcg (50,000 unit) capsule 1,250 mcg PO WEEKLY glimepiride 2 mg tablet amoxicillin-pot clavulanate 875-125 mg tablet 1 tablet PO Q12H 7 Days Qty: 14 0RF Follow-up/Referrals: Vince Najera MD [Physician] - 08/01/24 Marty Banuelos MD [Primary Care Provider] -
[2024-07-29] MEDS: TETANUS,DIPHTHERIA,AC PERTUSSIS ADULT (0.5 ML) BOOSTRIX IM (17:00)
[2024-07-29 17:01] LABS: Basophils Absolute Auto 0.1 K/mm3 (0.0-0.1); Basophils Percent Auto 0.5 % (0.2-1.2); Eosinophils Absolute Auto 0.3 K/mm3 (0-0.3); Eosinophils Percent Auto 1.8 % (0-4.4); Hematocrit 46.1 % (37.0-47.0); Hemoglobin 15.6 g/dL (12.0-15.0); Immature Granulocyte Absolute 0.05 K/mm3 (0.00-0.031); Immature Granulocyte Percent A 0.4 % (0-0.5); Lymphocytes Absolute Auto 3.61 K/mm3 (0.9-3.2); Lymphocytes Percent Auto 26.7 % (18.3-44.2); Mean Corpuscular HGB Conc 33.8 g/dl (32-36); Mean Corpuscular Hemoglobin 29.9 pg (26-34); Mean Corpuscular Volume 88.5 fl (80-100); Mean Platelet Volume 10.2 fl (7.4-10.4); Monocytes Absolute Auto 0.8 K/mm3 (0.1-0.6); Monocytes Percent Auto 5.8 % (2.6-8.5); Neutrophils Absolute Auto 8.8 K/mm3 (1.3-6.7); Neutrophils Percent Auto 64.8 % (45.5-73.1); Platelet Count Result 243 k/mm3 (150-375); Red Blood Count 5.21 M/mm3 (4.2-5.4); Red Cell Distribution Width 13.5 % (11.5-14.5); White Blood Count 13.5 K/mm3 (4.5-10.0)
[2024-07-29 17:25] LABS: Alanine Aminotransferase 27 U/L (6-35); Albumin Level 4.1 g/dL (3.5-5.1); Alkaline Phosphatase 102 U/L (38-126); Anion Gap 12 mmol/L (4-12); Aspartate Amino Transferase 21 U/L (14-36); Bilirubin,Total 0.6 mg/dL (0.2-1.3); Blood Urea Nitrogen 16 mg/dL (7-17); Calcium 9.1 mg/dL (8.4-10.2); Carbon Dioxide 21 mmol/L (22-30); Chloride 102 mmol/L (98-107); Estimated CRCL calculation 152 ml/min; Estimated Glomerular Filt Rate > 60; Glucose 319 mg/dL (65-110); Potassium 4.3 mmol/L (3.4-5.0); Sodium 135 mmol/L (137-145)
[2024-07-29 18:19] VITALS: PULSE 75; RESP 18; O2SAT 99
== END 2024-07-29 18:20 | disposition home or self-care (01) ==
PROVIDERS: Emergency Provider Emergency Medicine; PCP Emergency Medicine
DX: S61.253A Open bite of left middle finger without damage to nail, initial encounter (principal); Z23 Encounter for immunization; E11.9 Type 2 diabetes mellitus without complications; E28.2 Polycystic ovarian syndrome; F17.210 Nicotine dependence, cigarettes, uncomplicated; Z87.442 Personal history of urinary calculi; Z90.710 Acquired absence of both cervix and uterus; M19.042 Primary osteoarthritis, left hand; W53.21XA Bitten by squirrel, initial encounter
CPT/HCPCS: 36415; 73130; 80053; 85025; 90471; 90715; 99283; A9270

== ENCOUNTER 2025-01-25 10:04 | Emergency (ER) | payer OTHER, SELFPAY ==
--- OUTSIDE RECORDS SUMMARY | 2025-01-25 10:16 | XMS_ITS | Clinical Summary ---
Author Organization [facility] Address [address] [place] [address] Phone Care Team Providers Care Account Executive Sales Representative Name Role Phone Hillary Hayes Primary Care Provider [phone] Allergies Active Allergy Reactions Criticality Noted Date Comments Cyclobenzaprine Hcl Unknown Medications loperamide (IMODIUM) 2 MG Capsule Active metFORMIN (GLUCOPHAGE) 500 MG Tablet Active Active Problems Problem Noted Date Diagnosed Date Type 2 diabetes mellitus Overview (04/14/2015): Uncomplicated, controlled IGTN (ingrowing toe nail) Overview (04/14/2015): S/p permanent matrixectomy R medial border Social History Tobacco Use Types Packs/Day Years Used Date Smoking Tobacco: Never Assessed Comments Unknown Sex and Gender Information Value Date Recorded Sex Assigned at Not on file Legal Sex Female 12:08 AM CDT Gender Identity Not on file Sexual Orientation Not on file Plan of Treatment Health Maintenance Due Date Last Done Comments Diabetes: Eye Exam 1980 Diabetes: Foot Exam 1980 Diabetes: Hemoglobin A1c 1980 Hepatitis C Virus (HCV) Screening 1980 TdaP Immunization 1980 Diabetes: Nephropathy Screening 1998 Hepatitis B Immunization (1 of 3 - 19+ 3-dose series) 09/14/1999 Pneumococcal Immunization Co mbined (1 of 2 - PCV) 09/14/1999 Human Papillomavirus (HPV) Immunization (1 - 3-dose SCDM series) 09/14/2007 SARS-COV-2 Immunization (1 - 2023- season) 2024 Influenza Immunization (#1) 2025 Respiratory Syncytial Virus (RSV) Immunization (Adult) (1 - 1-dose 75+ series) 09/14/2055 Meningococcal Immunization (ACWY) Aged Out No longer eligible based on patient's age to complete this topic Rotavirus Immunization Aged Out No lo nger eligible based on patient's age to complete this topic Care Teams Account Executive Sales Representative Relationship Specialty Start Date End Date Hillary Hayes PA [address] [place] [id number] PCP - General Adult Medicine 12/18/17
[2025-01-25 10:19] VITALS: BP 110/86; PULSE 92; RESP 16; TEMP 36.4; O2SAT 98
--- OUTSIDE RECORDS SUMMARY | 2025-01-25 10:19 | XMS_ITS | Clinical Summary ---
Author Organization [facility] Address [address] [place] [address] Care Team Providers Care Freight Rate Specialist Name Role Phone ServandoPatrickYoselinadonay Sahni NP Primary Care Provider [phone] Allergies No known active allergies Medications benzonatate (TESSALON) 100 mg capsuleIndicatio ns:Cough Take 1 capsule (100 mg total) by mouth 3 (three) times a day as needed for cough 15 capsule 06/11/2019 Active nitrofurantoin monohydrate (MACROBID) 100 mg capsule Take 1 capsule (100 mg total) by mouth 2 (two) times a day 10 capsule 03/19/2021 Active Active Problems Problem Noted Date Diagnosed Date Type 2 diabetes mellitus 11/28/2021 Overview (11/28/2021): Uncomplicated, controlled Surgical History Surgery Date Site/Laterality Comments NE DILATION & CURETTAGE DX&/ THER NONOBSTETRIC Dilation And Curettage - (Added by TW Conv) Medical History Medical History Date Comments Personal history of other di seases of the digestive system History of irritable bowel s yndrome - since 11/28 (Added by TW Conv) Social History Tobacco Use Types Packs/Day Years Used Date Smoking Tobacco: Every Day Smokeless Tobacco: Never Comments No Sex and Gender Information Value Date Recorded Sex Assigned at Not on file 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 Gender Identity Not on file Sexual Orientation Not on file Obstetrics History Last Filed Vital Signs Vital Sign Reading Time Taken Comments Blood Pressure 121/83 11/28/2021 10:19 AM CDT Pulse 75 11/28/2021 10:19 AM CDT Temperature 36.6 C (97.8 F) 11/28/2021 10:19 AM CDT Respiratory Rate 18 11/28/2021 10:19 AM CDT Oxygen Saturation 100% 11/28/2021 10:19 AM CDT Inhaled Oxygen Concentration - - Weight 80.7 kg (178 lb) 11/28/2021 10:19 AM CDT Height 165.1 cm (5' 5) 03/25/2021 11:54 AM CDT Body Mass Index 29.62 03/25/2021 11:54 AM CDT Plan of Treatment Not on file Insurance [facility], [facility] MEDICAID [facility] Care Teams Freight Rate Specialist Relationship Specialty Start Date End Date Servando, Yoselin Sahni NP [address] [place] [address] PCP - General Nurse Practitioner 03/18/21
--- NOTE | 2025-01-25 10:36 | ED.FEMALEGU ---
HPI - Female Genitourinary General Chief complaint: Urogenital-Female Stated complaint: uti and yeast inf Time Seen by Provider: 01/25/25 10:36 Source: patient and RN notes reviewed Mode of arrival: ambulatory Limitations: no limitations History of Present Illness HPI Narrative: 44 y/o female with hx DM presented for c/o burning with urination, frequency. Onset 3 days. Says it feels like it is 'traveling up the kidneys,' with some right flank pain intermittently. Also reports vaginal itching yesterday. She took Pyridium, Cystex, as well as left over antibiotics x2 days of macrobid but says it is not helping.Started with diarrhea yesterday. Denies hematuria, nausea, vomiting, abdominal pain, constipation, fevers or chills. Related Data Home Medications ?Medication ?Instructions ?Recorded ?Confirmed ?Last Taken ?Type glipizide 5 mg tablet mg 01/25/25 Unknown History Allergies Allergy/AdvReac Type Severity Reaction Status Date / Time No Known Allergies Allergy Verified 01/25/25 10:31 Review of Systems Review of Systems: CONSTITUTIONAL: Denies body aches, fever, chills, or sweats. CARDIOVASCULAR: Denies chest pain, palpitations, or edema. RESPIRATORY: Denies cough or dyspnea. GASTROINTESTINAL: Denies abdominal pain, nausea, vomiting, or diarrhea. GENITOURINARY: Reports dysuria, frequency, flank pain, denies urgency, hematuria, discharge SKIN: Denies rash, itching, or wounds. MUSCULOSKELETAL: Denies back pain or myalgia. [facility] Past Medical History Medical History Buttocks nodule Encounter for surgical aftercare following surgery on the skin and subcutaneous tissue Irritable bowel syndrome Kidney stones Polycystic ovarian syndrome Surgical History Surgical History History of excision of mass excision of 6 cm L buttock mass on 08/09/22 pathology showed benign epidermal inclusion cyst History of placement of ear tubes History of tubal ligation H/O: hysterectomy Family History Family History Mother Family history of mental disorder Family history of diabetes mellitus in first degree relative Heart disease Grandparent Cerebrovascular accident Diabetes mellitus Heart disease Social History Social History Smoking packs per day: 1 Smoking cigarettes per day: 20.0 Years smoked: 27 Smoking pack-years: 27.00 Smoking status: Current every day smoker Alcohol intake: never Substance use type: marijuana Other substance usage details: HOURLY Living arrangements: with family Occupation/Education: occupation Gender identity (if verbalized by the patient): Female Comments At time of signature, I have reviewed and agree with nursing past medical, surgical, social and family history unless otherwise noted. Please see nursing chart for further information. There is no relevant family history pertinent to the presenting complaint Exam Narrative: GENERAL: Well-appearing ENT: Mucous membranes pink and moist. NECK: Normal AROM. Supple. CHEST: No respiratory distress. Clear to auscultation. HEART: Regular rate and rhythm. ABDOMEN: Soft, nontender, nondistended, normal active bowel sounds. No CVA tenderness SKIN: Warm, dry, no rash. NEURO: No focal deficits. Alert and oriented x3. Gait steady. PSYCH: Normal affect. Course Course Emergency Course: Patient is aware of diagnosis, understands and agrees to treatment plan. Anticipatory guidance given. Patient agrees to follow-up as directed and is aware of reasons to seek care at the emergency department. Portions of this record may have been created with voice recognition software Level of Care: Express Care Visit Vital Signs Vital signs: Vital Signs Temperature 97.5 F L 01/25/25 10:19 Pulse Rate 92 01/25/25 10:19 Respiratory Rate 16 01/25/25 10:19 Blood Pressure 110/86 01/25/25 10:19 Pulse Oximetry 98 01/25/25 10:19 Oxygen Delivery Room Air 01/25/25 10:19 Temperature 97.5 F L 01/25/25 10:19 Pulse Rate 92 01/25/25 10:19 Respiratory Rate 16 01/25/25 10:19 Blood Pressure 110/86 01/25/25 10:19 Pulse Oximetry 98 01/25/25 10:19 Oxygen Delivery Room Air 01/25/25 10:19 Reviewed MDM - Female Genitourinary MDM Narrative Medical decision making narrative: Discussed physical exam findings. Offered to wait to treat based on urine culture result, per shared decision making pt elects treatment for UTI and yeast at this time. She is aware abx can worsen GI symptoms. Advised supportive measures and signs/symptoms to go to the ER. Pt is appropriate for outpt treatment and f/u. Differential Diagnosis Differential diagnosis: Likely urinary tract infection, bacterial vaginosis, vaginitis and cystitis Lab Data Labs: Lab Results 01/25/25 Range/Units 10:40 POC Urine Color Dark POC Urine Clarity Clear POC Urine pH 6.5 POC Ur Specif [place] 1.025 POC Urine Protein Trace (Negative) POC Ur Glucose (UA) 2+ (Negative) POC Urine Ketones Trace (Negative) POC Urine Blood Negative (Negative) POC Urine Nitrite Negative (Negative) POC Urine Bilirubin Negative (Negative) POC Urine Urobilinogen 0.2 POC U Leukocyte Esteras Negative (Negative) Discharge Plan Discharge Clinical Impression: Dysuria Patient Disposition: Home Condition: Stable Instructions: Antibiotic Form, Urinary Tract Infection in Women (ED) Additional Instructions: Take the antibiotic as prescribed Medication also sent to treat yeast infection The urine will be sent of for a culture to identify what type of bacteria is causing your infection. If the culture shows that the antibiotic will not get rid of your infection, you will be notified and a new antibiotic will be called in for you. Increase water intake Stay hydrated. [place] foods (bananas, rice, applesauce, toast, crackers) Avoid fatty, greasy, fried or spicy foods. Limit dairy until symptoms are improved. [id number] Imodium according to package directions Recommend probiotic such as align or lactobacillus to help with symptoms. You should go to the hospital if you experience persistent nausea and vomiting that does not resolve and does not allow you to tolerate any food or fluids, fevers, increasing abdominal pain, persistent diarrhea, dizziness, fainting, or for any other concerns. Follow up with primary care provider in 3 days. Patient Language: German Prescriptions: New fluconazole 150 mg tablet 150 mg PO DAILY Qty: 2 0RF sulfamethoxazole-trimethoprim [Bactrim DS] 800-160 mg tablet 1 tablet PO Q12H 5 Days Qty: 10 0RF No Action glipizide 5 mg tablet Follow-up/Referrals: UNKNOWN,DOCTOR [Primary Care Provider] Stand Alone Forms: Work/School Release IP Time of Disposition: 11:03
[2025-01-25 10:41] LABS: EDUAAPPEAR Clear; EDUABILI Negative (Negative); EDUABLOOD Negative (Negative); EDUACOLOR1 Dark; EDUAGLUCOSE 2+ (Negative); EDUAKETONE Trace (Negative); EDUALEUKO Negative (Negative); EDUANITRATE Negative (Negative); EDUAPH 6.5; EDUAPROTEIN Trace (Negative); EDUASPGRAVITY 1.025; EDUAUROBILI 0.2
== END 2025-01-25 11:05 | disposition home or self-care (01) ==
PROVIDERS: Emergency Provider Nurse Practitioner Family
DX: R30.0 Dysuria (principal); E11.9 Type 2 diabetes mellitus without complications; Z79.84 Long term (current) use of oral hypoglycemic drugs; F17.210 Nicotine dependence, cigarettes, uncomplicated; F12.90 Cannabis use, unspecified, uncomplicated; E28.2 Polycystic ovarian syndrome
CPT/HCPCS: 81003; 87086; 99213; G0463

== ENCOUNTER 2025-05-16 09:36 | Emergency (ER) | payer OTHER, SELFPAY ==
--- NOTE | 2025-05-16 09:41 | ED.URI ---
HPI - URI/Sore Throat General Chief Complaint: Upper Respiratory Infection Stated Complaint: Chest Congestion/Cough Time Seen by Provider: 05/16/25 09:44 Source: patient, RN notes reviewed and old records reviewed Mode of arrival: ambulatory Limitations: no limitations History of Present Illness HPI Narrative: 44-year-old female presents to the [facility] with complaints of cough, congestion and body aches since Monday, 2 days. No treatment prior to arrival. Onset (ago): day(s) (2) Treatments prior to arrival: none Related Data Home Medications ?Medication ?Instructions ?Recorded ?Confirmed ?Last Taken ?Type glipizide 5 mg tablet mg 01/25/25 Unknown History saxagliptin 5 mg tablet mg 05/16/25 Unknown History Allergies Allergy/AdvReac Type Severity Reaction Status Date / Time No Known Allergies Allergy Verified 05/16/25 09:56 Review of Systems Review of Systems: All systems reviewed & are unremarkable except as noted in HPI and below Constitutional: Constitutional: Reports as per HPI, Reports body ache(s) and Reports chills ENT: Reports as per HPI and Reports nasal congestion Cardiovascular: Cardiovascular: Reports no additional cardiovascular complaints, Denies chest pain and Denies dyspnea Respiratory: Respiratory: Reports as per HPI, Reports chest congestion, Reports cough and Denies dyspnea Musculoskeletal: Musculoskeletal: Reports no additional musculoskeletal complaints Integumentary/Breasts: Skin/Breast: Reports system reviewed and no additional complaints, except as docu PMFSH Past Medical History Medical History Buttocks nodule Encounter for surgical aftercare following surgery on the skin and subcutaneous tissue Irritable bowel syndrome Kidney stones Polycystic ovarian syndrome Surgical History Surgical History History of excision of mass excision of 6 cm L buttock mass on 08/09/22 pathology showed benign epidermal inclusion cyst History of placement of ear tubes History of tubal ligation H/O: hysterectomy Family History Family History Mother Family history of mental disorder Family history of diabetes mellitus in first degree relative Heart disease Grandparent Cerebrovascular accident Diabetes mellitus Heart disease Social History Social History Smoking packs per day: 1 Smoking cigarettes per day: 20.0 Years smoked: 27 Smoking pack-years: 27.00 Smoking status: Current every day smoker Alcohol intake: never Substance use type: marijuana Other substance usage details: HOURLY Living arrangements: with family Occupation/Education: occupation Gender identity (if verbalized by the patient): Female Comments At the time of my signature, I reviewed and agree with the nursing past medical, surgical, social, and family history. There is no relevant family history pertinent to the patient complaint. Exam Const: General: cooperative, no acute distress, well developed, alert, tired appearing, uncomfortable and well nourished Nutritional Appearance: well nourished Orientation/consciousness: patient oriented x3 Limitations: no limitations HENMT: Head: normal to inspection Ears: hearing grossly normal bilaterally, external ears normal, TM's normal bilaterally, EAC's normal, mastoids normal and no periauricular adenopathy Face and sinus: normal facial exam, sinuses nontender and face symmetric Mouth: Yes Normal oral and palatal mucosa present, Yes lip normal, Yes tongue normal and Yes moist mucous membranes abnormal Throat: posterior oropharynx normal, uvula midline and no uvular edema Eyes: General: appearance normal, both eyes and all related structures Alignment and Position: alignment normal Neck: Neck: normal visual inspection, full ROM, no lymphadenopathy and no meningeal signs Chest: Chest palpation & inspection: normal inspection of the chest Resp: Effort & Inspection: normal respiratory effort and able to speak in complete sentences Auscultation: clear to auscultation bilaterally, no crackles, no rales, no rhonchi and no wheezes Cardio: Rate: regular rate Skin: General skin exam: normal color and no rashes or lesions noted Neuro: General: patient oriented x3, gait normal, moves all extremities and no meningeal signs Cognition (Neuro): normal cognition Speech: normal speech Gait exam (Neuro): Normal gait present Extrem: General: normal to inspection, full ROM, capillary refill normal and normal gait Psych: Appearance: grossly normal and well kempt Mental Status: mental status grossly normal Speech and movement: Normal speech and movement present and Clear speech present Affect: normal affect Attitude: cooperative Course Course Level of Care: Express Care Visit Vital Signs Vital signs: Vital Signs Temperature 98.9 F 05/16/25 09:48 Pulse Rate 96 05/16/25 09:48 Respiratory Rate 16 05/16/25 09:48 Blood Pressure 111/79 05/16/25 09:48 Pulse Oximetry 98 05/16/25 09:48 Oxygen Delivery Room Air 05/16/25 09:48 Temperature 98.9 F 05/16/25 09:48 Pulse Rate 96 05/16/25 09:48 Respiratory Rate 16 05/16/25 09:48 Blood Pressure 111/79 05/16/25 09:48 Pulse Oximetry 98 05/16/25 09:48 Oxygen Delivery Room Air 05/16/25 09:48 reviewed MDM MDM Narrative Medical decision making narrative: Patient sitting in exam room. Patient is nontoxic, vitals stable. Patient with 2 day history of URI symptoms. Patient is flu A positive, flu B and COVID negative. Patient is appropriate for outpatient treatment with close follow Discharge instructions reviewed with patient, as well as provided in writing per nursing staff. The instructions also include specific and strict return/GO TO THE ER as well as f/u information. All questions have been answered, and the patient deny any further questions with discharge and discharge plan. Some parts of this dictation were generated by voice recognition software and may contain typographical and/or grammatical inaccuracies. Differential Diagnosis Differential Diagnosis: Differential diagnostic considerations for upper respiratory infection include upper respiratory infection, croup, otitis media, sinusitis, viral infection, bronchitis, influenza, pharyngitis, strep, uvulitis.? Lab Data Labs: Lab Results 05/16/25 Range/Units 10:10 POC Influenza A Ag Positive (Negative) POC Influenza B Ag Negative (Negative) POC SARS CoV-2 Ag Negative (Negative) reviewed Discharge Plan Discharge Clinical Impression: Influenza A Patient Disposition: Home Condition: Stable Instructions: Antibiotic Form, Influenza (DC) Additional Instructions: Your rapid COVID test were negative Your rapid flu test was positive for influenza A Your symptoms are due to a viral illness, which is not treated with antibiotics. Typically viral infections last 7-10 days, can linger for couple of weeks. It is very important to treat your symptoms. Drink plenty of water, Gatorade, Pedialyte, ice pops or Jell-O. -Alternate Tylenol and Motrin per package directions for fever or pain. You can alternate every 4 hours -Antihistamine medication such as Zyrtec/Claritin/Holly during the day can help improve symptoms. -doing daily nasal irrigations can help relieve pressure your sinuses. Things like a Neti pot -Use Flonase twice a day for 5 days then daily to help reduce the inflammation and dry up your sinuses. -You can also use Mucinex. Be sure to drink plenty of water with this medication at least 8 ounces with every dose and it is important to drink 8 to 10 glasses of water per day. Water is a natural decongestant -Eat and drink things that are easy to swallow, like tea or soup, or popsicles. -Oral rinses such as: Salt water gargles and/or may use topical anesthetic (eg. Chloraseptic spray) or lozenges to relieve dryness or throat pain). -Frequent hand washing or hand laminating machine offbearer is one of the best ways to prevent spread of infection. -Using a vaporizer or humidifier at night will also help thin secretions and help with coughing up phlegm. -Follow up with primary care provider in 7-10 days if condition is not improving - For new or worsening symptoms go directly to the nearest ER Patient Language: Montenegrin Prescriptions: No Action glipizide 5 mg tablet saxagliptin 5 mg tablet Follow-up/Referrals: PHYSICIAN,WEB MARKETING SPECIALIST [Primary Care Provider, Internal Medicine] Stand Alone Forms: Work/School Release IP Time of Disposition: 10:11
[2025-05-16 09:48] VITALS: BP 111/79; PULSE 96; RESP 16; TEMP 37.2; O2SAT 98
--- OUTSIDE RECORDS SUMMARY | 2025-05-16 09:56 | XMS_ITS | Clinical Summary ---
Author Organization [facility] Address [address] [place] [address] Phone Care Team Providers Care Rouge Mixer Name Role Phone Hillary Hayes Primary Care Provider [phone] Allergies Active Allergy Reactions Criticality Noted Date [...] Virus (HCV) Screening 1980 TdaP Immunization 1980 Varicella Immunization (1 of 2 - 13+ 2-dose series) 1993 Diabetes: Nephropathy Screening 1998 Hepatitis B Immunization (1 of 3 - 19+ 3-dose series) 09/14/1999 Pneumococcal Immunization Co mbined (1 of 2 - PCV) 09/14/1999 Influenza Immunization (#1) 2025 SARS-COV-2 Immunization (1 - 2024- season) 2025 Respiratory Syncytial Virus (RSV) Immunization (Adult) (1 - 1-dose 75+ series) 09/14/2055 Human Papillomavirus (HPV) Immunization (No Doses Required) Completed Meningococcal Immunization (ACWY) Aged Out No longer eligible based on patient's age to complete this topic Rotavirus Immunization Aged Out No lo nger eligible based on patient's age to complete this topic Care Teams Rouge Mixer Relationship Specialty Start Date End Date Hillary Hayes PA [address] [address] PCP - General Adult Medicine 12/18/17
--- OUTSIDE RECORDS SUMMARY | 2025-05-16 09:56 | XMS_ITS | Clinical Summary ---
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
--- OUTSIDE RECORDS SUMMARY | 2025-05-16 09:59 | XMS_ITS | Data Portability ---
Author Organization [facility] [place] Address [address] [place] [address] [place] [address] Care Team Providers Care Cullet Trucker Name Role Phone BOJORQUEZALDEN Primary Care Provider [phone] Assessment No assessment recorded. Plan of Treatment Reminders Order Date Submit Date Provider Last Modified By Organization Details Last Modified Time Details Appointments None recorded. Lab urinalysis , dipstick 2021 022 [facility] [place], [address], [place], [address], 2 15:36:50 culture, urine 2021 022 [facility] (Lab), [address], [place], [address], 2 00:00:12 culture, urine 2020 021 [facility] (Lab), [address] [place], [address], 1 04:08:33 Referral None recorded. Procedures None recorded. Surgeries None recorded. Imaging None recorded. Medication Orders Macrobid 100 mg capsule 2021 022 [id number], [address], [place], [place], [id number], 2 11:56:14 Bactrim DS 800 mg-160 mg tablet 2021 022 [id number], [address], [place], [place], [id number], 2 11:38:43 Bactrim DS 800 mg-160 mg tablet [address] [facility][id number], [address], [place], [place], [id number], 2 11:38:43 mupirocin 2 % topical ointment [address] [facility][id number], [address], [place], [place], [id number], 2 11:46:01 Diflucan 200 mg tablet [address] [facility]30904, [address], [place], [place], [id number], 11:38:31 Hibiclens 4 % topical liquid 2021 [facility][id number], [address], [place], [place], [id number], 2 11:46:09 Patient TargetsNo targets recorded. Patient InstructionsNo instructions recorded. Reason for Referral None Reported. Results Created Date Observation Date Name Description Value Unit Range Abnormal Flag Note LastModifiedBy Organization Detail LastModifiedTime 03/12/2003/12/2021 URINA LYSIS , WITH MICRO SCOPI C color, urine Felicity colorl ess, light yellow , yellow , dark yellow , straw abnormal Possi ble color inter feren ce for bilir ubin, urobi linog en, nitri te, and leuko cyte drew ase tests . Not Available [facility] (Lab) [address], [place], [address], 03/14/2021 04:56:35 03/12/20 21 03/12/2021 URINA LYSIS , WITH MICRO SCOPI C clarity, urine Clear Not Available [facility] (Lab) [address] [facility], [place], [address], 03/14/2021 04:56:35 03/12/20 21 03/12/2021 URINA LYSIS , WITH MICRO SCOPI C glucose, urine >=500 mg/dL negati ve abnormal Not Available [facility] (Lab) [address] [facility], [place], [address], 03/14/2021 04:56:35 03/12/20 21 03/12/2021 URINA LYSIS , WITH MICRO SCOPI C bilirubin, urine Negati ve mg/dL negati ve Not Available [facility] (Lab) [address], [place], [address], 03/14/2021 04:56:35 03/12/20 21 03/12/2021 URINA LYSIS , WITH MICRO SCOPI C ketones, urine 20 mg/dL negati ve abnormal Not Available [facility] (Lab) [address], [place], [address], 03/14/2021 04:56:35 03/12/20 21 03/12/2021 URINA LYSIS , WITH MICRO SCOPI C pH, urine 6.0 . 5.0-9. [address] [facility] (Lab) [address], [place], [address], 03/14/2021 04:56:35 03/12/20 21 03/12/2021 URINA LYSIS , WITH MICRO SCOPI C specific gravity, urine 1.038 . 1.001- 1.[address] [facility] (Lab) [address], [place], [address], 03/14/2021 04:56:35 03/12/20 21 03/12/2021 URINA LYSIS , WITH MICRO SCOPI C blood, urine Modera te negati ve abnormal Not Available [facility] (Lab) [address] [place], [address], 03/14/2021 04:56:35 03/12/20 21 03/12/2021 URINA LYSIS , WITH MICRO SCOPI C protein, urine 100 mg/dL negati ve abnormal Not Available [facility] (Lab) [address], [place], [address], 03/14/2021 04:56:35 03/12/20 21 03/12/2021 URINA LYSIS , WITH MICRO SCOPI C urobilinogen , urine 4.0 mg/dL <2.0 abnormal Not Available [facility] (Lab) [address], [place], [address], 03/14/2021 04:56:35 03/12/2003/12/2021 URINA LYSIS , WITH MICRO SCOPI C nitrite, urine Positi ve negati ve abnormal Not Available [facility] (Lab) [address], [place], [address], 03/14/2021 04:56:35 03/12/20 21 03/12/2021 URINA LYSIS , WITH MICRO SCOPI C leukocyte esterase, urine Negati ve negati ve Not Available [facility] (Lab) [address], [place], [address], 03/14/2021 04:56:35 03/12/20 21 03/12/2021 URINA LYSIS , WITH MICRO SCOPI C WBC, urine 20-29 /hpf none, 0-[address] [facility] (Lab) [address], [place], [address], 03/14/2021 04:56:35 03/12/20 21 03/12/2021 URINA LYSIS , WITH MICRO SCOPI C RBC, urine 20-29 /hpf none, 0-[address] [facility] (Lab) [address], [place], [address], 03/14/2021 04:56:35 03/12/20 21 03/12/2021 URINA LYSIS , WITH MICRO SCOPI C bacteria, urine None /hpf none Not Available [facility] (Lab) [address], [place], [address], 03/14/2021 04:56:35 03/12/2003/12/2021 URINA LYSIS , WITH MICRO SCOPI C squamous epithelial cells, urine Trace /hpf none abnormal Not Available [facility] (Lab) [address], [place], [address], 03/14/2021 04:56:35 03/12/20 21 03/12/2021 URINA LYSIS , WITH MICRO SCOPI C non-squamous epi, urine Trace /hpf none abnormal Not Available [facility] (Lab) [address], [place], [address], 03/14/2021 04:56:35 03/12/20 21 03/12/2021 URINA LYSIS , WITH MICRO SCOPI C mucus, urine Trace /hpf none, trace, few Not Available [facility] (Lab) [address], [place], [address], 03/14/2021 04:56:35 03/12/2003/12/2021 CULTU RE: URINE result report SEE RESULT S BELOW Test: Cultu re: Urine Speci men Sourc e: Urine Voide d Speci men Type: Urine Speci men Date: 03/12 3:41 PM Resul t Date: 03/14 3:54 AM Resul t Statu s: Final resul t Abnor mal: No Resul ting Lab: [facility] [address] [facility] [address] Tel: [phone] CULTU RE ----- ----- ----- --- Cultu re resul t (>=3 organ isms prese nt) indic ates possi ble conta minat ion. Repea t cultu re if sympt oms indic ate. Not Available [facility] (Lab) [address] [place], [address], 03/14/2021 04:56:35 03/16/2003/16/2021 CULTU RE: URINE result report SEE RESULT S BELOW Test: Cultu re: Urine Speci men Sourc e: Urine Voide d Speci men Type: Urine Speci men Date: 03/16 1:30 PM Resul t Date: 03/18 3:05 AM Resul t Statu s: Final resul t Abnor mal: No Resul ting Lab: [facility] [address] [facility] [address] Tel: [phone] CULTU RE ----- ----- ----- --- Cultu re resul t (>=3 organ isms prese nt) indic ates possi ble conta minat ion. Repea t cultu re if sympt oms indic ate. Not Available [facility] (Lab) [address] [facility], [place], [address], 03/18/2021 04:08:33 07/12/19 22 07/12/2021 CULTU RE: URINE result report SEE RESULT S BELOW abnormal Test: Cultu re: Urine Speci men Sourc e: Urine Voide d Speci men Type: Urine Speci men Date: 2021 4:16 PM Resul t Date: 2021 10:58 PM Resul t Statu s: Final resul t Abnor mal: Yes Resul ting Lab: [facility] [address] [facility] [address] Tel: [phone] CULTU RE ----- ----- ----- --- >100, 000 CFU/m l Esche keysha a coli (Abno rmal) LEONARDCE PTIBI LITY ----- ----- ----- --- Esche keysha a coli METHO D ELENA ----- ----- ----- ----- ----- ---- ----- ----- ----- ----- ----- - AMIKA MENA <=16 ug/mL Susce ptibl e AMPIC ILLIN >16 ug/mL Resis tant AMPIC ILLIN /SULB ACTAM 16 ug/mL Inter media te AZTRE ONAM <=4 ug/mL Susce ptibl e CEFAZ KIKE 4 ug/mL Susce ptibl e CEFEP VIKTOR <=2 ug/mL Susce ptibl e CEFOX ITIN <=8 ug/mL Susce ptibl e CEFTA ZIDIM E <=1 ug/mL Susce ptibl e CEFTR IAXON E <=1 ug/mL Susce ptibl e CIPRO FLOXA MENA <=1 ug/mL Susce ptibl e GENTA MICIN >8 ug/mL Resis tant LEVOF LOXAC IN <=0.2 5 ug/mL Susce ptibl e MEROP ENEM <=1 ug/mL Susce ptibl e NITRO FURAN TOIN <=32 ug/mL Susce ptibl e PIPER ACILL IN/TA ZOBAC MIRANDA <=4 ug/mL Susce ptibl e TOBRA MYCIN 8 ug/mL Inter media te TRIME THOPR IM/PARSONS LFAME THOXA ZOLE >2 ug/mL Resis tant Not Available [facility] (Lab) [address] [facility], [place], [address], 07/15/2021 00:00:12 08/12/19 22 08/11/2021 URINA LYSIS , WITH MICRO SCOPI C color, urine Yellow colorl ess, light yellow , yellow , dark yellow , straw Possi ble color inter feren ce for bilir ubin, urobi linog en, nitri te, and leuko cyte drew ase tests . Not Available [facility] (Lab) [address] [facility], [place], [address], 08/12/2021 21:16:36 08/12/19 22 08/11/2021 URINA LYSIS , WITH MICRO SCOPI C clarity, urine Clear Not Available [facility] (Lab) [address] [facility] [address], [place], [address], 08/12/2021 21:16:36 08/12/19 22 08/11/2021 URINA LYSIS , WITH MICRO SCOPI C glucose, urine >=500 mg/dL negati ve abnormal Not Available [facility] (Lab) [address], [place], [address], 08/12/2021 21:16:36 08/12/19 22 08/11/2021 URINA LYSIS , WITH MICRO SCOPI C bilirubin, urine Negati ve mg/dL negati ve Not Available [facility] (Lab) [address], [place], [address], 08/12/2021 21:16:36 08/12/19 22 08/11/2021 URINA LYSIS , WITH MICRO SCOPI C ketones, urine Negati ve mg/dL negati ve Not Available [facility] (Lab) [address], [place], [address], 08/12/2021 21:16:36 08/12/19 22 08/11/2021 URINA LYSIS , WITH MICRO SCOPI C pH, urine 8.0 . 5.0-9. [address] [facility] (Lab) [address], [place], [address], 08/12/2021 21:16:36 08/12/19 22 08/11/2021 URINA LYSIS , WITH MICRO SCOPI C specific gravity, urine 1.032 . 1.001- 1.[address] [facility] (Lab) [address], [place], [address], 08/12/2021 21:16:36 08/12/19 22 08/11/2021 URINA LYSIS , WITH MICRO SCOPI C blood, urine Negati ve negati ve Not Available [facility] (Lab) [address], [place], [address], 08/12/2021 21:16:36 08/12/19 22 08/11/2021 URINA LYSIS , WITH MICRO SCOPI C protein, UA Negati ve mg/dL negati ve Not Available [facility] (Lab) [address], [place], [address], 08/12/2021 21:16:36 08/12/19 22 08/11/2021 URINA LYSIS , WITH MICRO SCOPI C urobilinogen , urine 2.0 mg/dL <2.0 abnormal Not Available [facility] (Lab) [address] [facility] [address], [place], [address], 08/12/2021 21:16:36 08/12/19 22 08/11/2021 URINA LYSIS , WITH MICRO SCOPI C nitrite, urine Positi ve negati ve abnormal Not Available [facility] (Lab) [address] [facility] [address], [place], [address], 08/12/2021 21:16:36 08/12/19 22 08/11/2021 URINA LYSIS , WITH MICRO SCOPI C leukocyte esterase, urine Negati ve kesha/u L negati ve Not Available [facility] (Lab) [address] [facility] [address], [place], [address], 08/12/2021 21:16:36 08/12/19 22 08/11/2021 URINA LYSIS , WITH MICRO SCOPI C WBC, urine 0-5 /hpf none, 0-[address] [facility] (Lab) [address] [facility] [address], [place], [address], 08/12/2021 21:16:36 08/12/19 22 08/11/2021 URINA LYSIS , WITH MICRO SCOPI C RBC, urine 0-2 /hpf none, 0-[address] [facility] (Lab) [address], [place], [address], 08/12/2021 21:16:36 08/12/19 22 08/11/2021 URINA LYSIS , WITH MICRO SCOPI C bacteria, urine None /hpf none Not Available [facility] (Lab) [address], [place], [address], 08/12/2021 21:16:36 08/12/19 22 08/11/2021 URINA LYSIS , WITH MICRO SCOPI C squamous epithelial cells, urine Trace /hpf none abnormal Not Available [facility] (Lab) [address], [place], [address], 08/12/2021 21:16:36 08/12/19 22 08/11/2021 URINA LYSIS , WITH MICRO SCOPI C mucus, urine Trace /hpf none, trace, few Not Available [facility] (Lab) [address], [place], [address], 08/12/2021 21:16:36 08/12/19 22 08/11/2021 CULTU RE: URINE result report SEE RESULT S BELOW Test: Cultu re: Urine Speci men Sourc e: Urine - Clean Catch Speci men Type: Urine Speci men Date: 2021 4:59 PM Resul t Date: 2021 8:14 PM Resul t Statu s: Final resul t Abnor mal: No Resul ting Lab: [facility] [address] [facility] [facility] [address] Tel: CULTU RE ----- ----- ----- --- No growt h in 1 day (dete ction level of 10,00 0 colon ies / ml.) Not Available [facility] (Lab) [address], [place], [address], 08/12/2021 21:16:36 08/12/19 22 08/11/2021 urina lysis , dipst ick Leukocytes neg Not Available [facility] [address], [place], [address], 08/11/2021 15:35:56 08/12/19 22 08/11/2021 urina lysis , dipst ick Nitrite + Not Available [address] [place], [address], 08/11/2021 15:35:56 08/12/19 22 08/11/2021 urina lysis , dipst ick Urobilinogen neg Not Available Anj[facility] [address], [place], [address], 08/11/2021 15:35:56 08/12/19 22 08/11/2021 urina lysis , dipst ick Protein neg Not Available [place] [address], [place], [address], 08/11/2021 15:35:56 08/12/19 22 08/11/2021 urina lysis , dipst ick pH 9 Not Available [place] [address], [place], [address], 08/11/2021 15:35:56 08/12/19 22 08/11/2021 urina lysis , dipst ick Blood trace Not Available [place] [address], [place], [address], 08/11/2021 15:35:56 08/12/19 22 08/11/2021 urina lysis , dipst ick Specific [place] 1.000 [facility] Available [facility] [address], [place], [address], 08/11/2021 15:35:56 08/12/19 22 08/11/2021 urina lysis , dipst ick Ketone neg Not Available [place] [address], [place], [address], 08/11/2021 15:35:56 08/12/19 22 08/11/2021 urina lysis , dipst ick Bilirubin neg Not Available [facility] [address], [place], [address], 08/11/2021 15:35:56 08/12/19 22 08/11/2021 urina lysis , dipst ick Glucose +++ Not Available [place] [address], [place], [address], 08/11/2021 15:35:56 08/12/19 22 08/11/2021 urina lysis , dipst ick Appearance clear Not Available [facility] [address], [place], [address], 08/11/2021 15:35:56 08/12/19 22 08/11/2021 urina lysis , dipst ick Color dark yellow Not Available [place] [address], [place], [address], 08/11/2021 15:35:56 Result Notes None recorded. Problems Name Problem SNOMED Code Status Onset Date Resolution Date Notes Provider Name and Address Organization Details Recorded Time anatomy study Completed 201003/12/2021 [facility] ANATMC SURVEY;Pr actice ID: 0001 Ling Mathew [facility] 13:23:04 Finding related to pregnanc y Completed 201003/12/2021 Bone and joint disorders of back, pelvis, and lower limbs of mother, antepartu m;Practic e ID: 0001 Ling Mathew [facility] 13:23:06 Peripher al neuritis in pregnanc y - not delivere d [id number] Completed 201003/12/2021 Antepartu m periphera l neuritis; Practice ID: [address] [facility] 13:23:28 Complica tion related to pregnanc y Completed 201003/12/2021 Weight Insuffici ent Antepartu m;Practic e ID: 0001 Ling Mathew [facility] 13:22:52 Glucose toleranc e test during pregnanc y - baby not yet delivere d outside referenc e range [id number] Completed 201003/12/2021 Gestatati onal Diabetes Antepartu m;Practic e ID: [address] [facility] 13:22:30 Excessiv e growth affectin g manageme nt of mother [id number] Completed 201003/12/2021 GROWTH LARGE LGA;Pract ice ID: 0001 Ling Mathew [facility] 13:23:03 Routine antenata l care Completed 201003/12/2021 Supervisi on of other normal ;Practice ID: 0001 Ling Mathew [facility] 13:23:38 Oligohyd ramnios with antenata l problem [id number] Completed 201003/12/2021 Oligohydr amnios, antepartu m;Practic e ID: 0001 Ling Mathew [facility] 13:23:25 Delivery normal [id number] Completed 201003/12/2021 Normal delivery; Practice ID: 0001 Ling Mathew [facility] 13:22:55 Single live from singleto n pregnanc y [id number] Completed 201003/12/2021 Mother with single liveborn; Practice ID: 0001 Ling Mathew [facility] 13:23:42 Postpart um care Completed 201003/12/2021 Postpartu m care and examinati on immediate ly after delivery; Practice ID: 0001 [address] [facility] 13:23:30 Procedur e on genitour inary system Completed 201003/12/2021 Steriliza tion;Prac tenisha ID: 0001 Ling Mathew [facility] 13:23:37 Premenst rual tension syndrome [id number] Completed 201003/12/2021 Premenstr ual tension syndromes ;Practice ID: 0001 Ling Mathew [facility] 13:23:35 Menstrua tion finding Completed 201103/12/2021 Menorrhag ia Excessive Menstruat ion;Pract ice ID: 0001 Ling Mathew [facility] 13:23:19 Cytologi c finding Completed 201103/12/2021 Pap Abnormal LGSIL;Pra ctice ID: 0001 Ling Mathew [facility] 13:22:54 Screenin g for malignan t neoplasm of cervix Completed 201103/12/2021 Screening for malignant neoplasms of the cervix;Re corded Elsewhere : No Locati on: [facility] So urce: EHR Chron ic: N Practic e ID: 0001 Bill able Time: 11:45:00 AM Ling Mathew [facility] 13:23:40 Neoplasm of uncertai n behavior of skin [id number] Completed 201103/12/2021 Lesion Uncertain Excludes Genital;P ractice ID: 0001 Ling Mathew [facility] 13:23:22 Overweig ht [id number] Completed 201103/12/2021 Overweigh t;Practic e ID: 0001 Ling Mathew [facility] 13:23:27 Dysfunct ional uterine bleeding Completed 201103/12/2021 DUB;Pract ice ID: 0001 Ling Mathew [facility] 13:22:57 Pregnanc y test negative [id number] Completed 201103/12/2021 Negative Test;Prac tenisha ID: 0001 Ling Mathew [facility] 13:23:33 Dysmenor kayla [id number] Completed 201103/12/2021 Dysmenorr hea;Pract ice ID: [address] [facility] 13:22:59 Irregula r intermen strual bleeding [id number] Completed 201103/12/2021 Metrorrha danelle;Pract ice ID: [address] [facility] 13:23:15 Pre-surg roverto evaluati on Completed 201103/12/2021 Pre-opera tive examinati on, unspecifi ed;Practi ce ID: [address] [facility] 13:23:32 Adult health examinat ion Completed 201103/12/2021 Routine general medical examinati on at a health care facility; Practice ID: [address] [facility] 13:22:34 Urinary tract infectio us disease [id number] Completed 201203/12/2021 Urinary tract infection , site not specified ;Practice ID: [address] [facility] 13:23:50 Vaginiti s and vulvovag initis Completed 201203/12/2021 Vaginitis and vulvovagi nitis, unspecifi ed;Practi ce ID: 0001 Ling Mathew [facility] 13:23:52 Urinary incontin ence [id number] Completed 201203/12/2021 Urinary incontine nce, unspecifi ed;Record ed Elsewhere : No Locati on: [facility] So urce: EHR Chron ic: N Practic e ID: 0001 Bill able Time: 03:00:[address] [facility] 13:23:49 Swelling of limb [id number] Completed 05/06/ 2013 03/12/2021 Swelling of limb;Kiko rded Elsewhere : No Locati on: [facility] So urce: EHR Chron ic: N Practic e ID: 0001 Bill able Time: 03:00:[address] [facility] 13:23:47 Benign neoplasm of skin of trunk, excludin g scrotum Completed 201303/12/2021 Benign neoplasm of skin of trunk, except scrotum;P ractice ID: 0001 Ling Mathew [facility] 13:22:38 Bronchit is [id number] Completed 201503/12/2021 Bronchiti s;Recorde d Elsewhere : No Locati on: [facility] So urce: EHR Chron ic: N Practic e ID: 0001 Bill able Time: 10:30:00 AM Ling Mathew [facility] 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 13:23:23 Actinic keratosi s [id number] Completed 201503/12/2021 Actinic keratosis ;Practice ID: 0001 Lingalessia Mathew [facility] 13:22:32 Disorder of perineum Completed 201503/12/2021 Condyloma acuminatu m;Recorde d Elsewhere : No Locati on: [facility] So urce: EHR Chron ic: N Practic e ID: 0001 Bill able Time: 09:30:00 AM [facility] 13:23:10 Epidermo id cyst [id number] Completed 201503/12/2021 Epidermal cyst;Kiko rded Elsewhere : No Locati on: [facility] So urce: EHR Chron ic: N Practic e ID: 0001 Bill able Time: 09:30:[address] [facility] 13:23:[address] Concept Completed 201603/12/2021 Encntr for urogynecology physician exam (general) (routine) w/o abn findings; Recorded Elsewhere : No Locati on: [facility] So urce: EHR Chron ic: N Practic e ID: 0001 Bill able Time: 01:00:00 PM Ling Mathew [facility] 13:23:[address] Concept Completed 201603/12/2021 Encntr for general adult medical exam w/o abnormal findings; Recorded Elsewhere : No Locati on: [facility] So urce: EHR Chron ic: N Practic e ID: 0001 Bill able Time: 01:00:00 PM Ling Mathew [facility] 13:23:44 Neoplast ic disease Completed 201603/12/2021 Neoplasm of unsp behavior of bone, soft tissue, and skin;Kiko rded Elsewhere : No Locati on: [facility] So urce: EHR Chron ic: N Practic e ID: 0001 Bill able Time: 11:15:00 AM Ling Mathew [facility] 13:23:20 Benign neoplasm of skin of trunk [id number] Completed 201603/12/2021 Other benign neoplasm of skin of trunk;Pra ctice ID: 0001 Ling Mathew [facility] 13:22:36 Blood leukocyt e number above referenc e range [id number] Completed 201803/12/2021 Elevated white blood cell count, unspecifi ed;Record ed Elsewhere : No Locati on: [facility] So urce: EHR Chron ic: N Practic e ID: 0001 Bill able Time: 09:30:00 AM Ling Mathew null, [facility] 13:23:13 Problem Notes None recorded. Procedures Surgical History Date Name Laterality Status Provider Name and Address Organization Details Recorded Time 06/11/19 22 Abcess Drainage completed Maria D Botello [facility] [address], [place], [address], [facility] 06/11/2021 15:58:24 12/13/19 20 Date of Last Pap Smear completed Ling Mathew [facility] 06/11/2021 14:20:47 10/26/19 12 Total hysterectomy completed [facility] 06/17/2021 17:25:55 05/29/19 11 ligation of bilateral fallopian tubes completed [facility] 06/17/2021 17:26:06 Imaging Results None recorded. Procedure Notes None recorded. Medical Equipment None Reported. Allergies No known drug allergies Medications Name Sig Start Date Stop Date Status Note LastModified by Organization Details LastModified Time amoxicill in 500 mg capsule 12/12 completed Not Available Not Available Not Available loperamid e 2 mg capsule take 2 capsule by oral route after 1st loose stool, followed by 1 capsule after each subseque nt loose stool not to exceed 16 mg/day 03/12 completed Prescrib ed Elsewher e: No [facility] odify By: jamie tz Encou nter DateTime : 01/08/20 14 08:30:00 AM Not Available Not Available Not Available fluconazo le 150 mg tablet take 1 tablet today and another on day 3 07/12 completed Not Available Not Available Not Available Vicodin 5 mg-500 mg tablet take 1 - 2 Tablet by oral route 4 - 6 hours as needed for pain 08/01 completed Prescrib ed Elsewher e: No Locat ion: [facility] Modify By: gretchen [email or web address] DateTime : 02/20/20 11 10:25:39 AM Not Available Not Available Not Available fluconazo le 200 mg tablet 1 tablet on days 1, 4 & 7 x 3 doses active Not Available Not Available No t Available terconazo le 0.8 % vaginal cream I 1 APS VAG QD FOR 7 DAYS 06/11 completed Not Available Not Available Not Available Pyridium 200 mg tablet take 1 tablet by oral route 3 times every day after meals 10/29 completed Prescrib ed Elsewher e: No Locat ion: [facility] odify By: yvette [email or web address] DateTime : 09/21/19 16 03:00:00 PM Not Available Not Available Not Available Zithromax Z-Pete 250 mg tablet take 2 tablet by oral route every day for 1 day then 1 tablet (250 mg) by oral route once daily for 4 days 07/17 completed Prescrib ed Elsewher e: No Locat ion: [facility] odify By: jamie Watkins nter DateTime : 07/13/19 16 10:30:00 AM Not Available Not Available Not Available levofloxa mena 250 mg tablet 12/12 completed Not Available Not Available Not Available sulfameth oxazole 800 mg-trimet hoprim 160 mg tablet take 1 tablet by oral route every 12 hours q12hrs x 7 days 07/12 completed Not Available Not Available Not Available OneTouch Ultra Test strips TEST QD active Not Available Not Available Not Available phenazopy ridine 100 mg tablet TAKE 1 TABLET BY MOUTH THREE TIMES DAILY FOR 7 DAYS active Not Available Not Available No t Available glipizide ER 2.5 mg tablet, extended release 24 hr active Not Available Not Available Not Available Cipro 500 mg tablet take 1 tablet by oral route every 12 hours 03/12 completed Prescrib ed Elsewher e: No [facility] By: jamie Watkins nter DateTime : 10/30/19 19 09:30:00 AM Not Available Not Available Not Available mupirocin 2 % topical ointment APPLY SMALL AMOUNT TOPICALL Y TO THE AFFECTED AREA THREE TIMES DAILY FOR 7 DAYS 07/12 completed Not Available Not Available Not Available ergocalci ferol (vitamin D2) 1,250 mcg (50,000 unit) capsule active Not Available Not Available Not Available methylpre dnisolone 4 mg tablets in a dose pack 12/12 completed Not Available Not Available Not Available Prozac 10 mg capsule take 2 capsule (20MG) by oral route every day 06/17 completed Prescrib ed Elsewher e: No Locat ion: [facility] odify By: colt Davenport ter DateTime : 02/29/20 11 09:00:00 AM Not Available Not Available Not Available Terazol 7 0.4 % vaginal cream insert 1 applicat orful by vaginal route every day for 7 days at bedtime 10/11 completed Prescrib ed Elsewher e: No Locat ion: [facility] odify By: jame Encount er DateTime : 10/06/19 13 09:38:55 AM Not Available Not Available Not Available fluticaso ne propionat e 50 mcg/actua tion nasal spray,leonard pension 12/12 completed Not Available Not Available Not Available Hibiclens 4 % topical liquid Apply 1 applicat ion twice a day by topical route for 7 days. 07/12 completed Not Available Not Available Not Available loratadin e 10 mg tablet 12/12 completed Not Available Not Available Not Available glipizide 5 mg tablet active Not Available Not Available Not Available amoxicill in 875 mg-potass ium clavulana te 125 mg tablet 12/12 completed Not Available Not Available Not Available Miconazol e-3 200 mg-2 % (9 gram) vaginal kit insert 1 syringe by vaginal route every bedtime for 3 days 05/06 completed Prescrib ed Elsewher e: No Locat ion: [facility] odify By: huber stevenson DateTime : 05/04/20 14 09:55:29 AM Not Available Not Available Not Available Calmme tablet 06/27 completed Prescrib ed Elsewher e: Yes Loca tion: [facility] odify By: gretchen thompson DateTime : 12/28/19 11 10:30:00 AM Not Available Not Available Not Available nitrofura ntoin monohydra te/macroc rystals 100 mg capsule TAKE 1 CAPSULE BY MOUTH EVERY 12 HOURS FOR 7 DAYS active Not Available Not Available No t Available Cipro 03/12 completed Not Available Not Available Not Available loperamid e 03/12 completed Not Available Not Available Not Available ProAir HFA 90 mcg/actua tion aerosol inhaler 12/12 completed Not Available Not Available Not Available Steglatro 5 mg tablet active Not Available Not Available Not Available OneTouch Ultra Blue Test Strip twice a day as needed 12/12 completed Not Available Not Available Not Available OneTouch Ultra2 Meter 12/12 completed Not Available Not Available Not Available OneTouch Delica Plus Lancet 33 gauge USE UTD ONCE A DAY active Not Available Not Available No t Available Vitals Date Recorded Body height Body mass index (BMI) Body weight Systolic And Diastolic Provider Name and Address Organization Details Last Updated DateTime 06/11/2021 166.37 cm 30.6 kg/m2 79418.77 g 128/78 mm[Hg] [facility] 06/11/2021 15:05:11 Date Recorded Body height Body mass index (BMI) Body weight Systolic And Diastolic Provider Name and Address Organization Details Last Updated DateTime 06/18/2021 166.37 cm 30.6 kg/m2 70457.77 g 120/80 mm[Hg] [facility] 06/18/2021 14:04:41 Date Recorded Body height Body mass index (BMI) Body weight Systolic And Diastolic Systolic And Diastolic Provider Name and Address Organization Details Last Updated DateTime 07/12/2021 166.37 cm 30.2 kg/m2 41835 g 146/90 mm[Hg] 151/90 mm[Hg] [facility] 11:38:27 Date Recorded Body height Provider Name an d Address Organization Details Last Updated DateTime 08/11/2021 166.37 cm [facility] 08/11/2021 17:21:34 Social History Question Answer Notes LastModified by Organizat ion Details LastModified Time Tobacco Smoking Status Current Every Day Smoker Not Available [facility] 03/31/2020 03:28:11 Are You Blind Or Do You Have Difficulty Seeing? No Information not available 06/11/2021 What Is Your Level Of Caffeine Consumption? Occasional Information not available 06/11/2021 Are You Deaf Or Do You Have Serious Difficulty Hearing? No Information not available 06/11/2021 What Type Of Diet Are You Following? REGULAR Information not available 06/11/2021 Which Illicit Or Recreational Drugs Have You Used? Marijuana Information not available 06/11/2021 Do You Use Your Seat Belt Or Car Seat Routinely? Yes Information not available 06/11/2021 Do You Have Smoke And Carbon Monoxide Detectors In Your Home? Yes Information not available 06/11/2021 Do You Use Sunscreen Routinely? Yes Information not available 06/11/2021 Sex: Unknown Functional Status Question Answer Note LastModified by Yext ion Details LastModified Time Do you use any illicit or recreational drugs? Yes Information not available 06/11/2021 What is your level of alcohol consumption? None Information not available 06/11/2021 Are you able to walk independently without assistance or assistive devices? YESWOREST Information not available 06/11/2021 What is your exercise level? None Information not available 06/11/2021 Mental Status Question Answer Note LastModified by Organization D etails LastModified Time Do you feel stressed (tense, restless, nervous, or anxious, or unable to sleep at night)? [id number] Information not available 06/11/2021 Family History Relationship Description Onset Age of this Age Resolved Age Notes LastModified by Organization Details LastModified Time Maternal Grandmother Cerebrovascu lar accident [email or web address] Not available 11:26:37 Maternal Grandmother Asthma [email or web address] Not available 11/27 11:26:55 Maternal Grandmother Diabetes mellitus [email or web address] Not available 2019 11:27:36 Maternal Grandmother Heart disease [email or web address] Not available 2019 11:29:17 Mother Asthma [email or web address] Not available 12/18/2019 11:26:55 Mother Diabetes mellitus [email or web address] Not available 2019 11:27:09 Mother Heart disease [email or web address] Not available 2019 11:29:17 Medical History Condition Response Diabetes Y Other Y History of abnormal pap Y Polycystic ovary syndrome Y Gynecological History Statement/Question Response Abnormal Pap Y Date of Last Mammogram Date of LMP 10/26/2011 Was last menstrual period normal N STIs/STDs N HPV Vaccine N Current Control Method Hysterectom y Are cycles usually normal N Menses Monthly N Date of Last Pap Smear 12/13/2019 Sexual Problems? N LMP Definite Obstetrics History GPAL:G 4 P 0 0 1 3 Type Value Spontaneous 1 Living 3 Total 4 Past Encounters Encounter ID Performer Location Encounter Start Date Encounter Closed Date Diagnosis/Indication Diagnosis SNOMED-CT Code Diagnosis ICD10 Code Diagnosis IMO Codes Diagnosis Note [id number] Mohamud Escalera MD [place] [address],[place] [address] 12/13/2019 16:41:09 12/15/2019 12:54:24 Vaginitis 81743082 N76.0 Patient reports vulvar pruritus and white vaginal discharge. We agreed to treat for yeast. Pain in pelvis 77812206 R10.2 This patient is a 39 -year-old female with pelvic pain. We have agreed to complete the evaluation with pelvic ultrasound . The patient will return after the pelvic ultrasound to discuss those findings and to develop a treatment plan. A comprehens carl history and physical exam was performed today. We spent over 25 minutes face-to-fa ce. The patient was given precaution s. She will contact clinic if pelvic pain increases in frequency or intensity. Also notify clinic of any new symptoms associated with pelvic pain. She does not appear to have an acute pelvic infection today, but was asked to contact us Immediatel y with nausea, vomiting, fever, chills. [id number] Maria D Botello [facility] [address],[place] [address] 01/05/2021 11:12:41 01/05/2021 16:55:10 Urinary tract infectious disease 85514853 N39.0 [id number] [facility] [address],[place] [address] 03/12/2021 15:35:11 03/12/2021 16:58:37 Vaginitis 68469112 N76.0 Yeast on exam +++Swab sent will call if any further treatment needed. Urinary tr act infectious disease 21377124 N39.0 Abx sent for possible UTI but this should also help the vulva boils she has as well.If they flare up want to come in for possible I&D and treatment. Lipoma of buttock 513267 02 D17.79 INitially discussed derm but likely a surgeon is a better fit for this issue.Will refer to [facility] [id number] Maria D Botello [facility] [address],[place] [address] 03/16/2021 11:13:59 03/16/2021 13:11:43 Urinary symptoms [id number] R39.9 [id number] Maria D Botello [facility] [address],[place] [address] 06/11/2021 14:47:21 06/11/2021 16:01:26 Abscess of vulva 41279292 N76.4 Post-proce dure instructio ns reviewed (See procedure notes).Rx' s sentSteril e Gauze 2x2's given. May use ibuprofen/ Tylenol for pain control prnIce packs prnCall if need a note for work. Patient is to contact office or go to nearest ED/Urgent care if fever >/= 100.1, pain, excessive bleeding, unusual drainage or swelling in area of concern; or experienci ng worsening sx's or new onset of concerning sx's. Understand ing verbalized . [place]. [id number] Maria D Botello [facility] [address],[place] [address] 06/18/2021 14:00:59 06/18/2021 14:42:02 Abscess of vulva 12517708 N76.4 Today, we agreed to do one more round of abx and continue cleaning/a bx ointment regimen until this area has fully closed which almost has. Her packing was removed w/o difficulty as noted in PE. Post-proce dure instructio ns given & ED precaution s reviewed:P atient is to contact office or go to nearest ED/Urgent care if fever >/= 100.1, pain, excessive bleeding, unusual drainage or swelling in area of concern; or experienci ng worsening sx's or new onset of concerning sx's. Understand ing verbalized . All questions answered to patient satisfacti on. RTO x 1wk f/u to ensure no issues & healing well.Rx sent. Time spent in visit is a total of 15 mins with at least 50% of visit consisting of counseling and review of plan of care.Addit ional precaution meghna measures were taken to minimize potential exposure to the Covid-19 virus during this patient s visit, including available hand property damage claims adjustor upon arrive, temperatur e check and being asked a series of screening questions. All staff wore face coverings during this encounter, as well as provided additional cleaning and sanitizing of all surfaces, including countertop s, pens, chairs, door handles, light switches, etc, prior to and following the patient s visit. [id number] [facility] [address] [address] 07/12/2021 11:33:00 07/13/2021 17:36:48 Urinary symptoms [id number] R39.9 Increase water and decrease caffeine. Call if any worsening or new symptoms. Will treat with macrobid. Urine sent for culture. [id number] [facility] [address] [address] 08/11/2021 15:23:59 08/13/2021 15:15:53 Urinary symptoms 763745143 R39.9 Urine sent to lab-walk in UTI visit Health Concerns Section Related Observation LastModified by Organization Detai ls LastModified Time None Recorded Concern Status LastModified by Organization Details LastModified Time None Recorded Advance Directives Directive None Recorded Payers Insurance Date Sequence Insurance Name Policy Number Policy Santizo Covered Member ID Santizo Member ID Guarantor Name 01/05/2021 1 [facility] - DOS PRIOR TO 2020 (MEDICAID REPLACEMENT - HMO) Mariella Medeiros [id number] 08/11/2021 1 [facility] - DOS ON OR AFTER 20 (MEDICAID REPLACEMENT - HMO) Mariella Medeiros [id number] Notes Date Note Type Note Provider Name and Address Organization Details Recorded Time 06/11/2021 text/html Here today with labial abscess.Has had a very small rice sized cystic like area that occasionally becomes inflamed, drains, and then resolves.Noticed this area felt more tender & slightly swollen a week ago.It progressively increased in size and started to drain yellow odorless drainage this past few days. It is painful and skin becomes irritated from clothing rubbing on it.She has been using abx ointment and keeping this area clean and dry until she was able to come to her appt today. Neg N/V/F/D/C [facility] D Botello [facility] [address], [place], [address], [facility] 06/11/2021 16:01:24 06/18/2021 text/html ROS as noted in the HPI Here today for abscess f/u.Doing very well.Has been following instructions and feels this area has significantly improved. Maria D Botello [facility] [address], [place], [address], [facility] 06/18/2021 14:40:51 07/12/2021 text/html ROS as noted in the HPI History of diabetes. History of frequent yeast infections that cause UTI's. Dysuria, frequency and burning. Denies vaginal symptoms. No fever, back pain or flu like symptoms. Luciana child, [facility] 07/12/2021 18:47:26 OBGyn Episode Ob Episode Information Episode Created Date Number of Fetuses Patient Bloodtype Patient rh Status Prepregnancy Weight lbs Domestic Partner Domestic Partner Phone Father Name Yard Assistant Status 12/18/19 20 1 CLOSED Fetus Data First Name Last Name Admitted to NICU Weight (g) Sex Living Outcome Pediatric Complications Fetus ID Race Codes Race Delivery Type 2806.37 [id number] F Full Term [id number] Vaginal Delivery Kalyan Calculation Initial Kalyan Date Initial Exam Date Initial Exam Provider Initial Ultrasound Date Last Menstrual Period Date Ultra Sound Weeks Gestation 0 Eighteen To Twenty Week Kalyan Update Ultra Sound Date Fundal Height At Umbil Quickening Date Ultra Sound Latest Weeks Gestation Final Kalyan Confirmed By Final Kalyan Confirmed Date Final Kalyan Date Ultra Sound Latest Days Gestation 0 0 Menstrual History Last Menstrual Date Menses Monthly On Bcp Conception Prior Menses Frequency Hcg Plus Date Menarche Onset Age Delivery Information Delivery Date Delivery Type Labor Anesthesia Weeks Gestation Incision Type Labor Labor Length Hrs Delivered By Post Complications Tubal Sterilization Discharge Date Comments 1 38 Discharge Information Feeding Method Contraceptive Method Maternal HG B and HCT Levels Ob Episode Information Episode Created Date Number of Fetuses Patient Bloodtype Patient rh Status Prepregnancy Weight lbs Domestic Partner Domestic Partner Phone Father Name Yard Assistant Status 12/18/19 20 1 CLOSED Fetus Data First Name Last Name Admitted to NICU Weight (g) Sex Living Outcome Pediatric Complications Fetus ID Race Codes Race Delivery Type F [id number] Vaginal Delivery Kalyan Calculation Initial Kalyan Date Initial Exam Date Initial Exam Provider Initial Ultrasound Date Last Menstrual Period Date Ultra Sound Weeks Gestation 0 Eighteen To Twenty Week Kalyan Update Ultra Sound Date Fundal Height At Umbil Quickening Date Ultra Sound Latest Weeks Gestation Final Kalyan Confirmed By Final Kalyan Confirmed Date Final Kalyan Date Ultra Sound Latest Days Gestation 0 0 Menstrual History Last Menstrual Date Menses Monthly On Bcp Conception Prior Menses Frequency Hcg Plus Date Menarche Onset Age Delivery Information Delivery Date Delivery Type Labor Anesthesia Weeks Gestation Incision Type Labor Labor Length Hrs Delivered By Post Complications Tubal Sterilization Discharge Date Comments 0 Discharge Information Feeding Method Contraceptive Method Maternal HG B and HCT Levels Ob Episode Information Episode Created Date Number of Fetuses Patient Bloodtype Patient rh Status Prepregnancy Weight lbs Domestic Partner Domestic Partner Phone Father Name Yard Assistant Status 12/18/19 20 1 CLOSED Fetus Data First Name Last Name Admitted to NICU Weight (g) Sex Living Outcome Pediatric Complications Fetus ID Race Codes Race Delivery Type 3458.63 9 F Full Term [id number] Vaginal Delivery Kalyan Calculation Initial Kalyan Date Initial Exam Date Initial Exam Provider Initial Ultrasound Date Last Menstrual Period Date Ultra Sound Weeks Gestation 0 Eighteen To Twenty Week Kalyan Update Ultra Sound Date Fundal Height At Umbil Quickening Date Ultra Sound Latest Weeks Gestation Final Kalyan Confirmed By Final Kalyan Confirmed Date Final Kalyan Date Ultra Sound Latest Days Gestation 0 0 Menstrual History Last Menstrual Date Menses Monthly On Bcp Conception Prior Menses Frequency Hcg Plus Date Menarche Onset Age Delivery Information Delivery Date Delivery Type Labor Anesthesia Weeks Gestation Incision Type Labor Labor Length Hrs Delivered By Post Complications Tubal Sterilization Discharge Date Comments 3 38 Discharge Information Feeding Method Contraceptive Method Maternal HG B and HCT Levels Ob Episode Information Episode Created Date Number of Fetuses Patient Bloodtype Patient rh Status Prepregnancy Weight lbs Domestic Partner Domestic Partner Phone Father Name Yard Assistant Status 12/18/19 20 1 CLOSED Fetus Data First Name Last Name Admitted to NICU Weight (g) Sex Living Outcome Pediatric Complications Fetus ID Race Codes Race Delivery Type , Spontane ous [id number] Kalyan Calculation Initial Kalyan Date Initial Exam Date Initial Exam Provider Initial Ultrasound Date Last Menstrual Period Date Ultra Sound Weeks Gestation 0 Eighteen To Twenty Week Kalyan Update Ultra Sound Date Fundal Height At Umbil Quickening Date Ultra Sound Latest Weeks Gestation Final Kalyan Confirmed By Final Kalyan Confirmed Date Final Kalyan Date Ultra Sound Latest Days Gestation 0 0 Menstrual History Last Menstrual Date Menses Monthly On Bcp Conception Prior Menses Frequency Hcg Plus Date Menarche Onset Age Delivery Information Delivery Date Delivery Type Labor Anesthesia Weeks Gestation Incision Type Labor Labor Length Hrs Delivered By Post Complications Tubal Sterilization Discharge Date Comments 7 9 Discharge Information Feeding Method Contraceptive Method Maternal HG B and HCT Levels
[2025-05-16 10:11] LABS: EDCOVIDSCREEN Negative (Negative); EDINFLUASCREEN Positive (Negative); EDINFLUBSCREEN Negative (Negative)
== END 2025-05-16 10:18 | disposition home or self-care (01) ==
PROVIDERS: Emergency Provider Nurse Practitioner
DX: J10.1 Influenza due to other identified influenza virus with other respiratory manifestations (principal); Z20.822 Contact with and (suspected) exposure to COVID-19; F17.210 Nicotine dependence, cigarettes, uncomplicated; E28.2 Polycystic ovarian syndrome
CPT/HCPCS: 87426; 87804; 99212; G0463

== ENCOUNTER 2025-05-19 17:24 | Emergency (ER) | payer OTHER, SELFPAY ==
--- OUTSIDE RECORDS SUMMARY | 2025-05-19 17:29 | XMS_ITS | Clinical Summary ---
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
--- OUTSIDE RECORDS SUMMARY | 2025-05-19 17:29 | XMS_ITS | Clinical Summary ---
Author Organization [facility] Address [address] [place] [address] Phone Care Team Providers Care Coke Burner Name Role Phone Hillary Hayes Primary Care Provider [phone] Allergies Active Allergy Reactions Criticality Noted Date [...] age to complete this topic Care Teams Coke Burner Relationship Specialty Start Date End Date Hillary Hayes PA [address] [address] PCP - General Adult Medicine 12/18/17
--- OUTSIDE RECORDS SUMMARY | 2025-05-19 17:29 | XMS_ITS | Data Portability ---
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 Plan of Treatment Reminders Order Date Submit Date Provider Last Modified By Organization Details Last Modified Time Details Appointments None recorded. Lab urinalysis , dipstick 2021 022 [facility], [address], [place], [address], 2 15:36:50 culture, urine [address] [facility] (Lab), [address], [place], [address], 2 00:00:12 culture, urine [address] [facility] (Lab), [address] [place], [address], 1 04:08:33 Referral None recorded. Procedures None recorded. Surgeries None recorded. Imaging None recorded. Medication Orders Macrobid 100 mg capsule 2021 022 [id number], [address], [place], [place], [id number], 2 11:56:14 Bactrim DS 800 mg-160 mg tablet 2021 022 [id number] [id number], [address], [place], [place], [id number], 2 11:38:43 Bactrim DS 800 mg-160 mg tablet [address] [facility]13708, [address], [place], [place], [id number], 2 11:38:43 mupirocin 2 % topical ointment [address] [facility]12991, [address], [place], [place], [id number], 2 11:46:01 Diflucan 200 mg tablet [address] [facility]93191, [address], [place], [place], [id number], 11:38:31 Hibiclens 4 % topical liquid 2021 [facility]02835, [address], [place], [place], [id number], 2 11:46:09 Patient TargetsNo targets recorded. Patient [...] cyte drew ase tests . Not Available [facility] (Lab) [address], [place], [address], 03/14/2021 04:56:35 03/12/20 21 03/12/2021 URINA LYSIS , WITH MICRO SCOPI C clarity, urine Clear Not Available [facility] (Lab) [address] [facility], [place], [address], 03/14/2021 04:56:35 03/12/20 21 03/12/2021 URINA LYSIS , WITH MICRO SCOPI C glucose, urine >=500 mg/dL negati ve abnormal Not Available [facility] (Lab) [address] [facility], [place], [address], 03/14/2021 04:56:35 03/12/20 21 03/12/2021 URINA LYSIS , WITH MICRO SCOPI C bilirubin, urine Negati ve mg/dL negati ve Not Available [facility] (Lab) [address] [facility], [place], [address], 03/14/2021 04:56:35 03/12/20 21 03/12/2021 URINA LYSIS , WITH MICRO SCOPI C ketones, urine 20 mg/dL negati ve abnormal Not Available [facility] (Lab) [address] [facility], [place], [address], 03/14/2021 04:56:35 03/12/20 21 03/12/2021 URINA LYSIS , WITH MICRO SCOPI C pH, urine 6.0 . 5.0-9. 0 Not Available [facility] (Lab) [address] [facility], [place], [address], 03/14/2021 04:56:35 03/12/20 21 03/12/2021 URINA LYSIS , WITH MICRO SCOPI C specific gravity, urine 1.038 . 1.001- 1.035 high Not Available [facility] (Lab) [address] [facility], [place], [address], 03/14/2021 04:56:35 03/12/20 21 03/12/2021 URINA LYSIS , WITH MICRO SCOPI C blood, urine Modera te negati ve abnormal Not Available [facility] (Lab) [address] [place], [address], 03/14/2021 04:56:35 03/12/20 21 03/12/2021 URINA LYSIS , WITH MICRO SCOPI C protein, urine 100 mg/dL negati ve abnormal Not Available [facility] (Lab) [address] [facility], [place], [address], 03/14/2021 04:56:35 03/12/20 21 03/12/2021 URINA LYSIS , WITH MICRO SCOPI C urobilinogen , urine 4.0 mg/dL <2.0 abnormal Not Available [facility] (Lab) [address] [facility], [place], [address], 03/14/2021 04:56:35 03/12/2003/12/2021 URINA LYSIS , WITH MICRO SCOPI C nitrite, urine Positi ve negati ve abnormal Not Available [facility] (Lab) [address] [facility], [place], [address], 03/14/2021 04:56:35 03/12/20 21 03/12/2021 URINA LYSIS , WITH MICRO SCOPI C leukocyte esterase, urine Negati ve negati ve Not Available [facility] (Lab) [address] [facility], [place], [address], 03/14/2021 04:56:35 03/12/20 21 03/12/2021 URINA LYSIS , WITH MICRO SCOPI C WBC, urine 20-29 /hpf none, 0-5 abnormal Not Available [facility] (Lab) [address] [facility], [place], [address], 03/14/2021 04:56:35 03/12/20 21 03/12/2021 URINA LYSIS , WITH MICRO SCOPI C RBC, urine 20-29 /hpf none, 0-2 abnormal Not Available [facility] (Lab) [address] [facility], [place], [address], 03/14/2021 04:56:35 03/12/20 21 03/12/2021 URINA LYSIS , WITH MICRO SCOPI C bacteria, urine None /hpf none Not Available [facility] (Lab) [address] [facility], [place], [address], 03/14/2021 04:56:35 03/12/2003/12/2021 URINA LYSIS , WITH MICRO SCOPI C squamous epithelial cells, urine Trace /hpf none abnormal Not Available [facility] (Lab) [address], [place], [address], 03/14/2021 04:56:35 03/12/20 21 03/12/2021 URINA LYSIS , WITH MICRO SCOPI C non-squamous epi, urine Trace /hpf none abnormal Not Available [facility] (Lab) [address] [facility] [facility] [address], [place], [address], 03/14/2021 04:56:35 03/12/20 21 03/12/2021 URINA LYSIS , WITH MICRO SCOPI C mucus, urine Trace /hpf none, trace, few Not Available [facility] (Lab) [address] [facility], [place], [address], 03/14/2021 04:56:35 03/12/2003/12/2021 CULTU RE: URINE result report SEE RESULT S BELOW Test: Cultu re: Urine Speci men Sourc e: Urine Voide d Speci men Type: Urine Speci men Date: 03/12 3:41 PM Resul t Date: 03/14 3:54 AM Resul t Statu s: Final resul t Abnor mal: No Resul ting Lab: [facility] [address] [facility] [address] Tel: [phone] CULTU RE ----- ----- ----- --- Cultu re resul t (>=3 organ isms prese nt) indic ates possi ble conta minat ion. Repea t cultu re if sympt oms indic ate. Not Available [facility] (Lab) [address] [place], [address], 03/14/2021 04:56:35 03/16/2003/16/2021 CULTU RE: URINE result report SEE RESULT S BELOW Test: Cultu re: Urine Speci men Sourc e: Urine Voide d Speci men Type: Urine Speci men Date: 03/16 1:30 PM Resul t Date: 03/18 3:05 AM Resul t Statu s: Final resul t Abnor mal: No Resul ting Lab: [facility] [address] [facility] [address] Tel: [phone] CULTU RE ----- ----- ----- --- Cultu re resul t (>=3 organ isms prese nt) indic ates possi ble conta minat ion. Repea t cultu re if sympt oms indic ate. Not Available [facility] (Lab) [address] [facility], [place], [address], 03/18/2021 04:08:33 07/12/19 22 07/12/2021 CULTU RE: URINE result report SEE RESULT S BELOW abnormal Test: Cultu re: Urine Speci men Sourc e: Urine Voide d Speci men Type: Urine Speci men Date: 2021 4:16 PM Resul t Date: 2021 10:58 PM Resul t Statu s: Final resul t Abnor mal: Yes Resul ting Lab: [facility] [address] [facility] [address] Tel: [phone] CULTU RE ----- ----- ----- --- [...] ZOLE >2 ug/mL Resis tant Not Available [facility] (Lab) [address] [facility], [place], [address], 07/15/2021 00:00:12 08/12/19 22 08/11/2021 URINA LYSIS , WITH MICRO SCOPI C color, urine Yellow colorl ess, light yellow , yellow , dark yellow , straw Possi ble color inter feren ce for bilir ubin, urobi linog en, nitri te, and leuko cyte drew ase tests . Not Available [facility] (Lab) [address] [facility], [place], [address], 08/12/2021 21:16:36 08/12/19 22 08/11/2021 URINA LYSIS , WITH MICRO SCOPI C clarity, urine Clear Not Available [facility] (Lab) [address] [facility], [place], [address], 08/12/2021 21:16:36 08/12/19 22 08/11/2021 URINA LYSIS , WITH MICRO SCOPI C glucose, urine >=500 mg/dL negati ve abnormal Not Available [facility] (Lab) [address], [place], [address], 08/12/2021 21:16:36 08/12/19 22 08/11/2021 URINA LYSIS , WITH MICRO SCOPI C bilirubin, urine Negati ve mg/dL negati ve Not Available [facility] (Lab) [address], [place], [address], 08/12/2021 21:16:36 08/12/19 22 08/11/2021 URINA LYSIS , WITH MICRO SCOPI C ketones, urine Negati ve mg/dL negati ve Not Available [facility] (Lab) [address], [place], [address], 08/12/2021 21:16:36 08/12/19 22 08/11/2021 URINA LYSIS , WITH MICRO SCOPI C pH, urine 8.0 . 5.0-9. 0 Not Available [facility] (Lab) [address], [place], [address], 08/12/2021 21:16:36 08/12/19 22 08/11/2021 URINA LYSIS , WITH MICRO SCOPI C specific gravity, urine 1.032 . 1.001- 1.035 Not Available [facility] (Lab) [address], [place], [address], 08/12/2021 21:16:36 08/12/19 22 08/11/2021 URINA LYSIS , WITH MICRO SCOPI C blood, urine Negati ve negati ve Not Available [facility] (Lab) [address], [place], [address], 08/12/2021 21:16:36 08/12/19 22 08/11/2021 URINA LYSIS , WITH MICRO SCOPI C protein, UA Negati ve mg/dL negati ve Not Available [facility] (Lab) [address], [place], [address], 08/12/2021 21:16:36 08/12/19 22 08/11/2021 URINA LYSIS , WITH MICRO SCOPI C urobilinogen , urine 2.0 mg/dL <2.0 abnormal Not Available [facility] (Lab) [address] [facility], [place], [address], 08/12/2021 21:16:36 08/12/19 22 08/11/2021 URINA LYSIS , WITH MICRO SCOPI C nitrite, urine Positi ve negati ve abnormal Not Available [facility] (Lab) [address] [facility], [place], [address], 08/12/2021 21:16:36 08/12/19 22 08/11/2021 URINA LYSIS , WITH MICRO SCOPI C leukocyte esterase, urine Negati ve kesha/u L negati ve Not Available [facility] (Lab) [address] [facility], [place], [address], 08/12/2021 21:16:36 08/12/19 22 08/11/2021 URINA LYSIS , WITH MICRO SCOPI C WBC, urine 0-5 /hpf none, 0-5 Not Available [facility] (Lab) [address] [facility], [place], [address], 08/12/2021 21:16:36 08/12/19 22 08/11/2021 URINA LYSIS , WITH MICRO SCOPI C RBC, urine 0-2 /hpf none, 0-2 Not Available [facility] (Lab) [address] [facility], [place], [address], 08/12/2021 21:16:36 08/12/19 22 08/11/2021 URINA LYSIS , WITH MICRO SCOPI C bacteria, urine None /hpf none Not Available [facility] (Lab) [address] [facility], [place], [address], 08/12/2021 21:16:36 08/12/19 22 08/11/2021 URINA LYSIS , WITH MICRO SCOPI C squamous epithelial cells, urine Trace /hpf none abnormal Not Available [facility] (Lab) [address] [facility], [place], [address], 08/12/2021 21:16:36 08/12/19 22 08/11/2021 URINA LYSIS , WITH MICRO SCOPI C mucus, urine Trace /hpf none, trace, few Not Available [facility] (Lab) [address] [facility], [place], [address], 08/12/2021 21:16:36 08/12/19 22 08/11/2021 CULTU RE: URINE result report SEE RESULT S BELOW Test: Cultu re: Urine Speci men Sourc e: Urine - Clean Catch Speci men Type: Urine Speci men Date: 2021 4:59 PM Resul t Date: 2021 8:14 PM Resul t Statu s: Final resul t Abnor mal: No Resul ting Lab: [facility] [address] [facility] [address] Tel: CULTU RE ----- ----- ----- --- No growt h in 1 day (dete ction level of 10,00 0 colon ies / ml.) Not Available [facility] (Lab) [address] [facility], [place], [address], 08/12/2021 21:16:36 08/12/19 22 08/11/2021 urina lysis , dipst ick Leukocytes neg Not Available Sudeep reese [address], [place], [address], 08/11/2021 15:35:56 08/12/19 22 08/11/2021 urina lysis , dipst ick Nitrite + Not Available [address] [place], [address], 08/11/2021 15:35:56 08/12/19 22 08/11/2021 urina lysis , dipst ick Urobilinogen neg Not Available Anjum lockett [address], [place], [address], 08/11/2021 15:35:56 08/12/19 22 08/11/2021 urina lysis , dipst ick Protein neg Not Available [facility] [address], [place], [address], 08/11/2021 15:35:56 08/12/19 22 08/11/2021 urina lysis , dipst ick pH 9 Not Available [facility] [address], [place], [address], 08/11/2021 15:35:56 08/12/19 22 08/11/2021 urina lysis , dipst ick Blood trace Not Available [facility] [address], [place], [address], 08/11/2021 15:35:56 08/12/19 22 08/11/2021 urina lysis , dipst ick Specific [place] 1.000 [facility] Available [facility] [address], [place], [address], 08/11/2021 15:35:56 08/12/19 22 08/11/2021 urina lysis , dipst ick Ketone neg Not Available [facility] [address], [place], [address], 08/11/2021 15:35:56 08/12/19 22 08/11/2021 urina lysis , dipst ick Bilirubin neg Not Available [facility] quan [address], [place], [address], 08/11/2021 15:35:56 08/12/19 22 08/11/2021 urina lysis , dipst ick Glucose +++ Not Available [facility] [address], [place], [address], 08/11/2021 15:35:56 08/12/19 22 08/11/2021 urina lysis , dipst ick Appearance clear Not Available [facility] [address], [place], [address], 08/11/2021 15:35:56 08/12/19 22 08/11/2021 urina lysis , dipst ick Color dark yellow Not Available [facility] [address], [place], [address], 08/11/2021 15:35:56 Result Notes None recorded. Problems Name Problem SNOMED Code Status Onset Date Resolution Date Notes Provider Name and Address Organization Details Recorded Time anatomy study Completed 201003/12/2021 [facility] ANATMC SURVEY;Pr actice ID: 0001 Ling Mathew [facility] 13:23:04 Finding related to pregnanc y Completed 201003/12/2021 Bone and joint disorders of back, pelvis, and lower limbs of mother, antepartu m;Practic e ID: 0001 Ling Mathe[facility] 13:23:06 Peripher al neuritis in pregnanc y - not delivere d [id number] Completed 201003/12/2021 Antepartu m periphera l neuritis; Practice ID: 0001 Ling child [facility] 13:23:28 Complica tion related to pregnanc y Completed 201003/12/2021 Weight Insuffici ent Antepartu m;Practic e ID: 0001 Ling Mathe[facility] 13:22:52 Glucose toleranc e test during pregnanc y - baby not yet delivere d outside referenc e range [id number] Completed 201003/12/2021 Gestatati onal Diabetes Antepartu m;Practic e ID: 0001 Ling child [facility] 13:22:30 Excessiv e growth affectin g manageme nt of mother [id number] Completed 201003/12/2021 GROWTH LARGE LGA;Pract ice ID: 0001 Ling Mathew [facility] 13:23:03 Routine antenata l care Completed 201003/12/2021 Supervisi on of other normal ;Practice ID: 0001 Ling Mathe[facility] 13:23:38 Oligohyd ramnios with antenata l problem [id number] Completed 201003/12/2021 Oligohydr amnios, antepartu m;Practic e ID: 0001 Ling Mathew [facility] 13:23:25 Delivery normal [id number] Completed 201003/12/2021 Normal delivery; Practice ID: 0001 Ling Mathe[facility] 13:22:55 Single live from singleto n pregnanc y [id number] Completed 201003/12/2021 Mother with single liveborn; Practice ID: 0001 Ling Mathew [facility] 13:23:42 Postpart um care Completed 201003/12/2021 Postpartu m care and examinati on immediate ly after delivery; Practice ID: 0001 Ling Mathew danyell [facility] 13:23:30 Procedur e on genitour inary system Completed 201003/12/2021 Steriliza tion;Prac tenisha ID: 0001 Ling Mathe[facility] 13:23:37 Premenst rual tension syndrome [id number] Completed 201003/12/2021 Premenstr ual tension syndromes ;Practice ID: 0001 Ling Mathew [facility] 13:23:35 Menstrua tion finding Completed 201103/12/2021 Menorrhag ia Excessive Menstruat ion;Pract ice ID: 0001 Ling Mathew [facility] 13:23:19 Cytologi c finding Completed 201103/12/2021 Pap Abnormal LGSIL;Pra ctice ID: 0001 Ling Mathew [facility] 13:22:54 Screenin g for malignan t neoplasm of cervix Completed 201103/12/2021 Screening for malignant neoplasms of the cervix;Re corded Elsewhere : No Locati on: [facility] So [facility]: EHR Chron ic: N Practic e ID: 0001 Bill able Time: 11:45:00 AM Ling Mathew [facility] 13:23:40 Neoplasm of uncertai n behavior of skin [id number] Completed 201103/12/2021 Lesion Uncertain Excludes Genital;P ractice ID: 0001 Ling Mathew [facility] 13:23:22 Overweig ht [id number] Completed 201103/12/2021 Overweigh t;Practic e ID: 0001 Ling Mathew [facility] 13:23:27 Dysfunct ional uterine bleeding Completed 201103/12/2021 DUB;Pract ice ID: 0001 Ling Mathew [facility] 13:22:57 Pregnanc y test negative [id number] Completed 201103/12/2021 Negative Test;Prac tenisha ID: 0001 Ling Mathew [facility] 13:23:33 Dysmenor kayla [id number] Completed 201103/12/2021 Dysmenorr hea;Pract ice ID: 0001 Ling child [facility] 13:22:59 Irregula r intermen strual bleeding [id number] Completed 201103/12/2021 Metrorrha danelle;Pract ice ID: 0001 Ling child [facility] 13:23:15 Pre-surg roverto evaluati on Completed 201103/12/2021 Pre-opera tive examinati on, unspecifi ed;Practi ce ID: 0001 Ling child [facility] 13:23:32 Adult health examinat ion Completed 201103/12/2021 Routine general medical examinati on at a health care facility; Practice ID: 0001 Ling child [facility] 13:22:34 Urinary tract infectio us disease [id number] Completed 201203/12/2021 Urinary tract infection , site not specified ;Practice ID: 0001 Ling child [facility] 13:23:50 Vaginiti s and vulvovag initis Completed 201203/12/2021 Vaginitis and vulvovagi nitis, unspecifi ed;Practi ce ID: 0001 Ling Mathew [facility] 13:23:52 Urinary incontin ence [id number] Completed 201203/12/2021 Urinary incontine nce, unspecifi ed;Record ed Elsewhere : No Locati on: [facility]: EHR Chron ic: N Practic e ID: 0001 Bill able Time: 03:00:00 PM Ling child [facility] 13:23:49 Swelling of limb [id number] Completed 05/06/ 2013 03/12/2021 Swelling of limb;Kiko rded Elsewhere : No Locati on: [facility] So [facility]: EHR Chron ic: N Practic e ID: 0001 Bill able Time: 03:00:00 PM Ling child [facility] 13:23:47 Benign neoplasm of skin of trunk, excludin g scrotum Completed 201303/12/2021 Benign neoplasm of skin of trunk, except scrotum;P ractice ID: 0001 Ling Mathew [facility] 13:22:38 Bronchit is [id number] Completed 201503/12/2021 Bronchiti s;Recorde d Elsewhere : No Locati on: [facility] So [facility]: EHR Chron ic: N Practic e ID: 0001 Bill able Time: 10:30:00 AM Ling Mathew [facility] 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 13:23:23 Actinic keratosi s [id number] Completed 201503/12/2021 Actinic keratosis ;Practice ID: 0001 Lingalessia Mathew [facility] 13:22:32 Disorder of perineum Completed 201503/12/2021 Condyloma acuminatu m;Recorde d Elsewhere : No Locati on: [facility] So [facility]: EHR Chron ic: N Practic e ID: 0001 Bill able Time: 09:30:00 AM [facility]:10 Epidermo id cyst [id number] Completed 201503/12/2021 Epidermal cyst;Kiko rded Elsewhere : No Locati on: [facility] So [facility]: EHR Chron ic: N Practic e ID: 0001 Bill able Time: 09:30:00 AM Ling child [facility] 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 13:23:[address] Concept Completed 201603/12/2021 Encntr for general adult medical exam w/o abnormal findings; Recorded Elsewhere : No Locati on: [facility] So [facility]: EHR Chron ic: N Practic e ID: 0001 Bill able Time: 01:00:00 PM Ling [facility] 13:23:44 Neoplast ic disease Completed 201603/12/2021 Neoplasm of unsp behavior of bone, soft tissue, and skin;Kiko rded Elsewhere : No Locati on: [facility] So [facility]: EHR Chron ic: N Practic e ID: 0001 Bill able Time: 11:15:00 AM Ling Mathew [facility] 13:23:20 Benign neoplasm of skin of trunk [id number] Completed 201603/12/2021 Other benign neoplasm of skin of trunk;Pra ctice ID: 0001 Ling Mathew [facility] 13:22:36 Blood leukocyt e number above referenc e range [id number] Completed 201803/12/2021 Elevated white blood cell count, unspecifi ed;Record ed Elsewhere : No Locati on: [facility] So [facility]: EHR Chron ic: N Practic e ID: 0001 Bill able Time: 09:30:00 AM Ling Mathew null, [facility] 13:23:13 Problem Notes None recorded. Procedures Surgical History Date Name Laterality Status Provider Name and Address Organization Details Recorded Time 06/11/19 22 Abcess Drainage completed Maria D Botello [facility] [address], [place], [address], [facility] 06/11/2021 15:58:24 12/13/19 20 Date of Last Pap Smear completed Ling Mathew [facility] 06/11/2021 14:20:47 10/26/19 12 Total hysterectomy completed [facility] 06/17/2021 17:25:55 05/29/19 11 ligation of bilateral fallopian tubes completed [facility] 06/17/2021 17:26:06 Imaging Results None recorded. [...] Prescrib ed Elsewher e: No [facility] odify By: jamie tz Encou nter [...] Prescrib ed Elsewher e: No Locat ion: [facility] Modify By: gretchen monteirountjavan DateTime : [...] Prescrib ed Elsewher e: No Locat ion: [facility] odify By: yvette [email or web address] DateTime : 09/21/19 16 03:00:00 PM Not Available Not Available Not Available Zithromax Z-Pete 250 mg tablet take 2 tablet by oral route every day for 1 day then 1 tablet (250 mg) by oral route once daily for 4 days 07/17 completed Prescrib ed Elsewher e: No Locat ion: [facility] odify By: jamie Watkins nter DateTime [...] Prescrib ed Elsewher e: No [facility] By: jamie Watkins nter DateTime [...] Prescrib ed Elsewher e: No [facility]at [facility] [facility] odify By: colt Davenport ter DateTime : 02/29/20 11 09:00:00 AM Not Available Not Available Not Available Terazol 7 0.4 % vaginal cream insert 1 applicat orful by vaginal route every day for 7 days at bedtime 10/11 completed Prescrib ed Elsewher e: No Locat ion: [facility] odify By: jame Encount er DateTime : [...] Prescrib ed Elsewher e: No Locat ion: [facility] odify By: huber stevenson DateTime : 05/04/20 14 09:55:29 AM Not Available Not Available Not Available Calmme tablet 06/27 completed Prescrib ed Elsewher e: Yes Loca tion: [facility] odify By: gretchen thompson DateTime : 12/28/19 [...] Updated DateTime 06/11/2021 166.37 cm 30.6 kg/m2 90736.77 g 128/78 mm[Hg] [facility] 06/11/2021 15:05:11 Date Recorded Body height Body mass index (BMI) Body weight Systolic And Diastolic Provider Name and Address Organization Details Last Updated DateTime 06/18/2021 166.37 cm 30.6 kg/m2 35062.77 g 120/80 mm[Hg] [facility] 06/18/2021 14:04:41 Date Recorded Body height Body mass index (BMI) Body weight Systolic And Diastolic Systolic And Diastolic Provider Name and Address Organization Details Last Updated DateTime 07/12/2021 166.37 cm 30.2 kg/m2 07079 g 146/90 mm[Hg] 151/90 mm[Hg] [facility] 11:38:27 Date Recorded Body height Provider Name an d Address Organization Details Last Updated DateTime 08/11/2021 166.37 cm [facility] 08/11/2021 17:21:34 Social History Question Answer [...] Functional Status Question Answer Note LastModified by [employer] ion Details LastModified Time Do you use [...] anxious, or unable to sleep at night)? [id number] Information not available 06/11/2021 Family History Relationship [...] ICD10 Code Diagnosis IMO Codes Diagnosis Note [id number] Mohamud Escalera MD [facility] [address],[place] [address] 12/13/2019 16:41:09 12/15/2019 12:54:24 Vaginitis 41888705 N76.0 Patient reports vulvar pruritus and white vaginal discharge. We agreed to treat for yeast. Pain in pelvis 39781530 R10.2 This patient is a 39 -year-old [...] Immediatel y with nausea, vomiting, fever, chills. [id number] Maria D Botello [facility] [address],[place] [address] 01/05/2021 11:12:41 01/05/2021 16:55:10 Urinary tract infectious disease 35055238 N39.0 [id number] [facility] D Botello [facility] [address],[place] [address] 03/12/2021 15:35:11 03/12/2021 16:58:37 Vaginitis 55353778 N76.0 Yeast on exam +++Swab sent will call if any further treatment needed. Urinary tr act infectious disease 91248655 N39.0 Abx sent for possible UTI but this should also help the vulva boils she has as well.If they flare up want to come in for possible I&D and treatment. Lipoma of buttock 650424 02 D17.79 INitially discussed derm but likely a surgeon is a better fit for this issue.Will refer to [facility] general surgery [id number] Maria D Botello [facility] [address],[place] [address] 03/16/2021 11:13:59 03/16/2021 13:11:43 Urinary symptoms [id number] R39.9 [id number] Maria D Botello [facility] [address],[place] [address] 06/11/2021 14:47:21 06/11/2021 16:01:26 Abscess of vulva 24836710 N76.4 Post-proce dure instructio ns reviewed (See [...] All questions [place]. [id number] Maria D Botello [facility] [address],[place] [address] 06/18/2021 14:00:59 06/18/2021 14:42:02 Abscess of vulva 98649116 N76.4 Today, we agreed to do one [...] this patient s visit, including available hand speech language pathologist prn upon arrive, temperatur e check and being asked a series of screening questions. All staff wore face coverings during this encounter, as well as provided additional cleaning and sanitizing of all surfaces, including countertop s, pens, chairs, door handles, light switches, etc, prior to and following the patient s visit. [id number] [facility] [address] [address] 07/12/2021 11:33:00 07/13/2021 17:36:48 Urinary symptoms [id number] R39.9 Increase water and decrease caffeine. Call if any worsening or new symptoms. Will treat with macrobid. Urine sent for culture. [id number] [facility] [address] [address] 08/11/2021 15:23:59 08/13/2021 15:15:53 Urinary symptoms [id number] R39.9 Urine sent to lab-walk in UTI visit Health Concerns Section Related Observation LastModified by Organization Detai ls LastModified Time None Recorded Concern Status LastModified by Organization Details LastModified Time None Recorded Advance Directives Directive None Recorded Payers Insurance Date Sequence Insurance Name Policy Number Policy Santizo Covered Member ID Santizo Member ID Guarantor Name 01/05/2021 1 [facility] - DOS PRIOR TO 2020 (MEDICAID REPLACEMENT - HMO) Mariella Medeiros [id number] 08/11/2021 1 [facility] - DOS ON OR AFTER 20 (MEDICAID REPLACEMENT - HMO) Mariella Medeiros [id number] Notes Date Note Type Note Provider Name [...] appt today. Neg N/V/F/D/C [facility] [address], [place], [address], [facility] 06/11/2021 16:01:24 06/18/2021 text/html ROS as noted in the HPI Here today for abscess f/u.Doing very well.Has been following instructions and feels this area has significantly improved. [facility] D Bot[facility] [address], [place], [address], [facility] 06/18/2021 14:40:51 07/12/2021 text/html ROS as noted in the HPI History of diabetes. History of frequent yeast infections that cause UTI's. Dysuria, frequency and burning. Denies vaginal symptoms. No fever, back pain or flu like symptoms. Luciana child, [facility] 07/12/2021 18:47:26 OBGyn Episode Ob Episode Information Episode Created Date Number of Fetuses Patient Bloodtype Patient rh Status Prepregnancy Weight lbs Domestic Partner Domestic Partner Phone Father Name Treer Status 12/18/19 20 1 CLOSED Fetus Data [...] Domestic Partner Domestic Partner Phone Father Name Treer Status 12/18/19 20 1 CLOSED Fetus Data [...] Domestic Partner Domestic Partner Phone Father Name Treer Status 12/18/19 20 1 CLOSED Fetus Data [...] Domestic Partner Domestic Partner Phone Father Name Treer Status 12/18/19 20 1 CLOSED Fetus Data [...]
--- OUTSIDE RECORDS SUMMARY | 2025-05-19 17:29 | XMS_ITS | Clinical Summary ---
Author Organization [facility] Address [address] [place] [id number] Care Team Providers Care Contact Lens Molder Name Role Phone Unavailable Primary Care Provider Unavailabl e Social History Tobacco Use Types Packs/Day Years Used Date Smoking Tobacco: Never Assessed Comments Unknown Sex and Gender Information Value Date Recorded Sex Assigned at Not on file Legal Sex Female 8:16 PM CDT Gender Identity Not on file Sexual Orientation Not on file Plan of Treatment Health Maintenance Due Date Last Done Comments Cervical Cancer Screening Pa p Smear (Age 30 to 64) Every 3 Years 1980 Annual Physical 09/14/1983 Hepatitis C 1998 DTaP, Tdap and Td Vaccines ( 1 - Tdap) 09/14/1999 Hepatitis B Vaccines (1 of 3 - 19+ 3-dose series) 09/14/1999 HPV Vaccines (1 - 3-dose SCD M series) 09/14/2007 Cervical Cancer Screening Pa p with HPV Testing (Age 30 to 64) Every 5 Years 2010 Cervical Cancer Screening with HPV 2010 Mammogram Screening 2020 COVID-19 Vaccine (2024-2 6 season) 2025 Influenza Adult (#1) 2025 Hepatitis A Vaccines Aged Out No long er eligible based on patient's age to complete this topic Meningococcal B Vaccine Aged Out No l onger eligible based on patient's age to complete this topic Meningococcal Vaccine Aged Out No itzel jill eligible based on patient's age to complete this topic Pneumococcal Vaccine: Pediat rics (0 to 5 Years) and At-Risk Patients (6 to 49 Years) Aged Out No longer eligible b ased on patient's age to complete this topic RSV Immunizations Under 20 Months Aged Out No longer eligible based on patient's age to complete this topic
--- NOTE | 2025-05-19 17:31 | ED_ITS ---
HPI - URI/Sore Throat General Chief Complaint: Upper Respiratory Infection Stated Complaint: Fever/Diarrhea Time Seen by Provider: 05/19/25 17:40 Source: patient Mode of arrival: ambulatory Limitations: no limitations History of Present Illness HPI Narrative: Mariella is a 44-year-old female patient presenting to the clinic today with complaints of fever, congestion, and diarrhea. She reports she was seen on the and tested positive for influenza A. Reports her symptoms were improving however this morning she was going to go to work and felt worse. Feels as though she has a fever although she has not checked her temperature. States she is having congestion and some diarrhea now. Denies any chest pain or shortness of breath. She is requesting a work note. Related Data Home Medications ?Medication ?Instructions ?Recorded ?Confirmed ?Last Taken ?Type glipizide 5 mg tablet mg 01/25/25 Unknown History saxagliptin 5 mg tablet mg 05/16/25 Unknown History Allergies Allergy/AdvReac Type Severity Reaction Status Date / Time No Known Allergies Allergy Verified 05/16/25 09:56 Review of Systems Review of Systems: Pertinent positives per HPI. Patient denies any rash, headache, visual changes, dizziness, cough, shortness of breath, chest pain, palpitations, nausea, vomiting, constipation, abdominal pain, or any urinary issues. [facility] Past Medical History Medical History Buttocks nodule Encounter for surgical aftercare following surgery on the skin and subcutaneous tissue Irritable bowel syndrome Kidney stones Polycystic ovarian syndrome Surgical History Surgical History History of excision of mass excision of 6 cm L buttock mass on 08/09/22 pathology showed benign epidermal inclusion cyst History of placement of ear tubes History of tubal ligation H/O: hysterectomy Family History Family History Mother Family history of mental disorder Family history of diabetes mellitus in first degree relative Heart disease Grandparent Cerebrovascular accident Diabetes mellitus Heart disease Social History Social History Smoking packs per day: 1 Smoking cigarettes per day: 20.0 Years smoked: 27 Smoking pack-years: 27.00 Smoking status: Current every day smoker Alcohol intake: never Substance use type: marijuana Other substance usage details: HOURLY Living arrangements: with family Occupation/Education: occupation Gender identity (if verbalized by the patient): Female Comments At the time of my signature, I reviewed and agree with the nursing past medical, surgical, social, and family history. There is no relevant family history pertinent to the patient complaint. Exam Narrative: General: Well-developed, obese, in no apparent distress Head: Normocephalic, atraumatic Eyes: Pupils equally round and reactive to light bilaterally, EOM intact, sclera and conjunctive clear, no discharge, lids normal Ears: TMs intact and clear, ear canals clear, no drainage, grossly hearing normal. Nose: Nares patent, clear nasal discharge, mild inflammation, no sinus tenderness. Mouth: Oral pharynx without lesions or masses, good dentition, MMM. Neck: Supple, trachea midline, no enlargement of anterior or posterior cervical nodes, no thyroid masses or goiter palpable. Cardio: Regular rate and rhythm, s1 and s2 normal, no murmur appreciated. Resp: Clear to auscultation bilaterally, no rhonchi, rales, wheezing or rubs Abdomen: Soft, pliable, bowel sounds present in all quadrants, non-tender to palpation, no organomegly, no CVAT tenderness. Course Course Level of Care: Express Care Visit Vital Signs Vital signs: Vital Signs Temperature 36.2 C L 05/19/25 17:36 Pulse Rate 85 05/19/25 17:36 Respiratory Rate 16 05/19/25 17:36 Blood Pressure 119/82 05/19/25 17:36 Pulse Oximetry 98 05/19/25 17:36 Oxygen Delivery Room Air 05/19/25 17:36 Temperature 36.2 C L 05/19/25 17:36 Pulse Rate 85 05/19/25 17:36 Respiratory Rate 16 05/19/25 17:36 Blood Pressure 119/82 05/19/25 17:36 Pulse Oximetry 98 05/19/25 17:36 Oxygen Delivery Room Air 05/19/25 17:36 [facility] MDM Narrative Medical decision making narrative: At the time of visit patient is resting comfortably on the exam table. Patient appears to be nontoxic. Complaints of fever, congestion, and diarrhea. She reports she was seen on the and tested positive for influenza A. Reports her symptoms were improving however this morning she was going to go to work and felt worse. Feels as though she has a fever although she has not checked her temperature. States she is having congestion and some diarrhea now. Denies any chest pain or shortness of breath. Is requesting work note. On exam patient has bilateral TMs intact and congested, clear nasal drainage, mild anterior turbinate inflammation, oral pharynx normal, no cervical lymphadenopathy, heart rates regular rate and rhythm, lung sounds are clear, abdomen is soft, pliable, nondistended, bowel sounds present all 4 quadrants., Plan: Patient tested positive for influenza a on May 16. Patient is here for work note. States that she had a called to work today and is needing work note. Supportive measures were discussed with the patient and they voiced understanding discharge instructions and agrees to treatment plan. Return precautions reviewed Differential Diagnosis Differential Diagnosis: Differential diagnostic considerations for upper respiratory infection include upper respiratory infection, croup, otitis media, sinusitis, viral infection, bronchitis, influenza, pharyngitis, strep, uvulitis. Discharge Plan Discharge Clinical Impression: Influenza A Patient Disposition: Home Condition: Stable Instructions: Antibiotic Form, Influenza (ED) Additional Instructions: May take sugar free DayQuil/NyQuil for cold/flu symptoms Increase fluids and stay well hydrated May take Tylenol or motrin as directed on bottle for pain/fever May use Flonase 1 spray in each nare daily May take OTC antihistamines such as Zyrtec or Claritin daily as directed on bottle May apply Vicks vapor rub to chest to open sinuses Sinus rinses for congestion Cepacol spray, cough drops, throat lozenges, warm tea with honey/lemon, gargle salt water to soothe throat BRAT diet for diarrhea Clear liquids x 24 hours then advance as tolerated for nausea/vomiting Go to the ED if you develop a worsening in your condition- high fever not controlled by Tylenol or Motrin, dehydration, weakness, lethargy, shortness of breath, or chest pain. Follow up with your PCP in 3-5 days if symptoms persist. Patient Language: Kyrgyz Prescriptions: No Action glipizide 5 mg tablet saxagliptin 5 mg tablet Follow-up/Referrals: PHYSICIAN,COMMUNICATIONS TECHNOLOGIST [Primary Care Provider, Internal Medicine] Stand Alone Forms: Work/School Release IP Time of Disposition: 17:41 Quality NIHSS Nursing Documentation ED NIHSS nursing documentation: reviewed/agree
[2025-05-19 17:36] VITALS: BP 119/82; PULSE 85; RESP 16; TEMP 36.2; O2SAT 98
== END 2025-05-19 17:55 | disposition home or self-care (01) ==
PROVIDERS: Emergency Provider Nurse Practitioner Family
DX: J10.1 Influenza due to other identified influenza virus with other respiratory manifestations (principal); F17.210 Nicotine dependence, cigarettes, uncomplicated; F12.90 Cannabis use, unspecified, uncomplicated; E28.2 Polycystic ovarian syndrome
CPT/HCPCS: 99211; G0463